=== PATIENT | female | born 1975 | race American Indian/Alaskan Native ===

== ENCOUNTER 2019-08-31 09:38 | Emergency (ER) | payer BC, OTHER ==
[2019-08-31] MEDS ORDERED: ASPIRIN 325 MG TAB PO ONE (09:59)
[2019-08-31 10:30] LABS: Basophils % (Auto) 0.3 % (0.0-1.8); Eosinophils # (Auto) 0.2 K/mm3 (0.0-0.4); Eosinophils % (Auto) 2.1 % (0.0-4.3); Hemoglobin 10.9 gm/dl (10.1-14.3); Lymphocytes # (Auto) 2.3 K/mm3 (1.2-5.4); Lymphocytes % (Auto) 29.1 % (13.4-35.0); Mean Corpuscular HGB Conc 33 % (30-34); Mean Corpuscular Volume 86 fl (79-97); Monocytes # (Auto) 0.4 K/mm3 (0.0-0.8); Monocytes % (Auto) 4.6 % (0.0-7.3); Platelet Count 311 K/mm3 (140-440); Red Blood Count 3.86 M/mm3 (3.65-5.03); Red Cell Distribution Width 14.9 % (13.2-15.2)
--- NOTE | 2019-08-31 10:31 | XRay Report ---
CHEST 2 VIEWS INDICATION: Chest Pain. COMPARISON: 06/10/2010. FINDINGS: Support devices: None. Heart: Within normal limits. Lungs/Pleura: No acute air space or interstitial disease. No significant pleural effusion. IMPRESSION: No acute findings. Signer Name: Osvaldo Fry MD Signed: 08/31/2019 10:26 AM Workstation Name: [id number]
[2019-08-31 10:47] LABS: BUN/Creatinine Ratio 9; Blood Urea Nitrogen 6 mg/dL (7-17); Calcium 8.5 mg/dL (8.4-10.2); Hemolysis Index 4
--- NOTE | 2019-08-31 11:36 | Emergency Department Report ---
ED Chest Pain HPI - General Chief Complaint: Chest Pain Stated Complaint: PAIN IN CHEST Time Seen by Provider: 08/31/19 11:27 Source: patient Mode of arrival: Ambulatory Limitations: No Limitations - History of Present Illness Initial Comments: Patient is a 44-year-old female Emergency room with complaints of chest pain is started 3 days ago. Patient's states the chest pain is a 6 out of 10. Patient states the chest pain is in her left chest. Patient states it radiates to her breast at times. Patient states the chest pain is worse with movement and palpation. Patient states the pain is better with rest. Patient states she's been taking aspirin daily for a week. Patient states she has a history of hypertension. Patient states she started taking Norvasc 2 months ago and it is controlling her blood pressure. Patient denies a history of stroke, CAD and [place]. Patient denies shortness of breath. MD Complaint: chest pain -: Sudden Pain Location: left chest Pain Radiation: other (breast) Severity scale (0 -10): 6 Quality: aching Improves With: rest Worsens With: palpation, movement re: denies: nausea, vomting, diaphoresis, dyspnea, sense of impending doom Other Symptoms: denies: cough, fever, syncope, rash, acid taste in mouth, leg swelling, palpitations, burping Treatments Prior to Arrival: aspirin Aspirin use within the Past 7 Days: (1) Yes - Related Data On Oral Contraceptives: No Home Medications Medication Instructions Recorded Confirmed Last Taken Aspirin/Acetaminophen/Caffeine 1 each PO PRN PRN 06/23/18 06/28/18 06/14/18 [[employer]-Str Powder Packet] Atenolol [Tenormin] 50 mg PO DAILY 06/23/18 06/28/18 06/28/18 09:00 Diclofenac Sodium 75 mg PO BID 06/23/18 06/28/18 06/21/18 Furosemide [Lasix TAB] 20 mg PO DAILY PRN 06/23/18 06/28/18 06/21/18 Phentermine HCl [Adipex-P] 37.5 mg PO QAM 06/23/18 06/23/18 06/22/18 Topiramate [Topamax] 50 mg PO DAILY 06/23/18 06/28/18 06/27/18 16:00 Previous Rx's Medication Instructions Recorded Last Taken Type Naproxen [Naprosyn] 500 mg PO TID PRN #12 tablet 09/17/18 Unknown Rx methOCARBAMOL [Robaxin TAB] 500 mg PO BID #10 tab 09/17/18 Unknown Rx Allergies Allergy/AdvReac Type Severity Reaction Status Date / Time lisinopril Allergy Angioedema Verified 06/23/18 15:02 tramadol AdvReac HEADACHE/ Verified 06/23/18 15:02 VOMITING Heart Score - HEART Score History: Slightly suspicious EKG: Normal Age: < 45 Risk factors: No known risk factors Troponin: < normal limit HEART Score: 0 ED Review of Systems ROS: Stated complaint: PAIN IN CHEST Other details as noted in HPI Constitutional: denies: chills, fever Eyes: denies: eye pain, eye discharge, vision change ENT: denies: ear pain, throat pain Respiratory: denies: cough, shortness of breath, wheezing Cardiovascular: chest pain. denies: palpitations Endocrine: no symptoms reported Gastrointestinal: denies: abdominal pain, nausea, diarrhea Genitourinary: denies: urgency, dysuria, discharge Musculoskeletal: denies: back pain, joint swelling, arthralgia Skin: denies: rash, lesions Neurological: denies: headache, weakness, paresthesias Psychiatric: denies: anxiety, depression Hematological/Lymphatic: denies: easy bleeding, easy bruising ED Past Medical Hx - Past Medical History Previous Medical History?: Yes Hx Hypertension: Yes Hx Arthritis: Yes Hx Headaches / Migraines: Yes (Migraines) - Surgical History Past Surgical History?: Yes Additional Surgical History: RIGHT ROTATOR CUFF REPAIR - Social History Smoking Status: Never Smoker Substance Use Type: None - Medications Home Medications: Home Medications Medication Instructions Recorded Confirmed Last Taken Type Aspirin/Acetaminophen/Caffeine 1 each PO PRN PRN 06/23/18 06/28/18 06/14/18 History [[employer]-Str Powder Packet] Atenolol [Tenormin] 50 mg PO DAILY 06/23/18 06/28/18 06/28/18 09:00 History Diclofenac Sodium 75 mg PO BID 06/23/18 06/28/18 06/21/18 History Furosemide [Lasix TAB] 20 mg PO DAILY PRN 06/23/18 06/28/18 06/21/18 History Phentermine HCl [Adipex-P] 37.5 mg PO QAM 06/23/18 06/23/18 06/22/18 History Topiramate [Topamax] 50 mg PO DAILY 06/23/18 06/28/18 06/27/18 16:00 History Naproxen [Naprosyn] 500 mg PO TID PRN #12 tablet 09/17/18 Unknown Rx methOCARBAMOL [Robaxin TAB] 500 mg PO BID #10 tab 09/17/18 Unknown Rx ED Physical Exam - General Limitations: No Limitations General appearance: alert, in no apparent distress - Head Head exam: Present: atraumatic, normocephalic - Eye Eye exam: Present: normal appearance, PERRL Pupils: Present: normal accommodation - ENT ENT exam: Present: mucous membranes moist - Neck Neck exam: Present: normal inspection - Respiratory Respiratory exam: Present: normal lung sounds bilaterally, chest wall tenderness. Absent: respiratory distress, wheezes, rales - Cardiovascular Cardiovascular Exam: Present: regular rate, normal rhythm. Absent: systolic murmur, diastolic murmur, rubs, gallop - GI/Abdominal GI/Abdominal exam: Present: soft, normal bowel sounds - Extremities Exam Extremities exam: Present: normal inspection - Back Exam Back exam: Present: normal inspection - Neurological Exam Neurological exam: Present: alert, oriented X3 - Psychiatric Psychiatric exam: Present: normal affect, normal mood - Skin Skin exam: Present: warm, dry, intact, normal color. Absent: rash ED Course Vital Signs 08/31/19 08/31/19 08/31/19 09:45 11:44 12:39 Temperature 97.7 F Pulse Rate 84 67 60 Respiratory 18 17 16 Rate Blood Pressure 133/100 146/92 139/90 [Right] O2 Sat by Pulse 97 100 98 Oximetry - Reevaluation(s) Reevaluation #1: discussed all results with patient. Patient's information was faxed over to our local cardiology office for further evaluation of her chest pain. Patient agrees with plan of care and discharge. Patient will be discharged home. Patient stable for discharge. Patient given discharge instructions. Patient voiced understanding of discharge instructions. 08/31/19 12:04 KALINA score - Kalina Score Age > 65: (0) No Aspirin use within the Past 7 Days: (1) Yes 3 or more CAD Risk Factors: (0) No 2 or more Angina events in past 24 hrs: (1) Yes Known CAD with more than 50% Stenosis: (0) No Elevated Cardiac Markers: (0) No ST Deviation Greater than 0.5mm: (0) No KALINA Score: 2 ED Medical Decision Making - Lab Data Result diagrams: 08/31/19 10:02 08/31/19 10:02 - EKG Data -: EKG Interpreted by Me EKG shows normal: sinus rhythm, axis, intervals, QRS complexes, ST-T waves Rate: normal - Radiology Data Radiology results: report reviewed, image reviewed CHEST 2 VIEWS INDICATION: Chest Pain. COMPARISON: 06/10/2010. FINDINGS: Support devices: None. Heart: Within normal limits. Lungs/Pleura: No acute air space or interstitial disease. No significant pleural effusion. IMPRESSION: No acute findings. - Medical Decision Making is a 44-year-old female with a past medical history of hypertension presents to the emergency room with complaints of chest pain 3 days. Patient's chest pain is low risk. Patient's heart score is 0. Patient is stable for discharge. Patient discharged home. Patient will need to follow up with [facility] for further evaluation of her chest pain. Patient's chest pain clinically is musculoskeletal however we will have have the patient see a tax appraiser for further eval. Patient's initial cardiac workup is negative. Patient's EKG and chest x-ray negative. Patient's troponin is negative. Patient stable for discharge. - Differential Diagnosis chest wall pain. Chest pain. Low risk chest pain. Critical care attestation.: If time is entered above; I have spent that time in minutes in the direct care of this critically ill patient, excluding procedure time. ED Disposition Clinical Impression: Chest wall pain, Hypokalemia Chest pain Qualifiers: Chest pain type: unspecified Qualified Code(s): R07.9 - Chest pain, unspecified Disposition: - TO HOME OR SELFCARE Is pt being admited?: No Does the pt Need Aspirin: No Condition: Stable Instructions: Chest Pain (ED), Costochondritis (ED) Additional Instructions: Patient to follow-up with primary care in 2-3 days. Patient to follow-up with tax appraiser within 2 days. Patient to return to ER condition worsens. Patient's information has been faxed over to our local cardiology office, [facility]. Patient to avoid strenuous exercise until cleared by cardiology. Patient to take aspirin daily. Patient to continue all medications. Patient to monitor blood pressure at home. Patient take Tylenol or ibuprofen when necessary for pain. Referrals: PRIMARY CARE, [Primary Care Provider] - 2-3 Days FLAKITA ALLEN MD [Staff Physician] - 2-3 Days Time of Disposition: 12:08
[2019-08-31 12:40] VITALS: BP 139/90
== END 2019-08-31 12:39 | disposition home or self-care (01) ==
LOC: ED 09:38
DX: R07.89 Other chest pain (principal); E87.6 Hypokalemia; I10 Essential (primary) hypertension; M19.90 Unspecified osteoarthritis, unspecified site; G43.909 Migraine, unspecified, not intractable, without status migrainosus
CPT/HCPCS: 36415; 71046; 80048; 84484; 85025; 93005; 93010

== ENCOUNTER 2021-02-05 18:48 | Inpatient (IN) | payer BC, OTHER ==
[2021-02-05] MEDS ORDERED: ACETAMINOPHEN 500 MG TAB PO ONE (20:38)
[2021-02-05] MEDS ORDERED: SODIUM CHLORIDE 0.9% 1000 ML 1,000 ML IV ONE (20:38)
[2021-02-05] MEDS ORDERED: AZITHROMYCIN/NS 500 MG/250 ML 500 MG/250 ML BAG IV ONE (20:39)
[2021-02-05] MEDS ORDERED: cefTRIAXone/NS 1 GM/50 ML 1 GM/50 ML BAG IV ONE (20:39)
[2021-02-05 21:42] LABS: Basophils % (Auto) 0.1 % (0.0-1.8); Hematocrit 40.5 % (30.3-42.9); Hemoglobin 13.3 gm/dl (10.1-14.3); Lymphocytes # (Auto) 1.1 K/mm3 (1.2-5.4); Lymphocytes % (Auto) 15.4 % (13.4-35.0); Mean Corpuscular HGB Conc 33 % (30-34); Mean Corpuscular Volume 81 fl (79-97); Monocytes # (Auto) 0.3 K/mm3 (0.0-0.8); Platelet Count 226 K/mm3 (140-440); Red Blood Count 5.01 M/mm3 (3.65-5.03)
[2021-02-05 21:43] LABS: Alanine Aminotransferase 26 units/L (7-56); Albumin 3.4 g/dL (3.9-5); BUN/Creatinine Ratio 7; Blood Urea Nitrogen 6 mg/dL (7-17); C-Reactive Protein 10.2 mg/dL (0.00-1.30); Calcium 8.1 mg/dL (8.4-10.2); Hemolysis Index 0
--- NOTE | 2021-02-05 22:30 | XRay Report ---
CHEST 2 VIEWS INDICATION / CLINICAL INFORMATION: Chest pain, dyspnea, cough. COMPARISON: None available. FINDINGS: SUPPORT DEVICES: None. HEART / MEDIASTINUM: No significant abnormality. LUNGS / PLEURA: Patchy bilateral pulmonary opacities and interstitial prominence. No pneumothorax. ADDITIONAL FINDINGS: No significant additional findings. IMPRESSION: 1. Patchy bilateral pulmonary opacities and interstitial prominence favor pulmonary edema although an infectious process cannot be completely excluded. Signer Name: Lalito Mariscal MD Signed: 02/05/2021 10:26 PM Workstation Name: [id number]
[2021-02-06] MEDS ORDERED: cefTRIAXone/NS 1 GM/50 ML 1 GM/50 ML BAG IV ONE (02:30)
[2021-02-06] MEDS ORDERED: ACETAMINOPHEN 500 MG TAB PO ONE (02:30)
[2021-02-06] MEDS ORDERED: AZITHROMYCIN/NS 500 MG/250 ML 500 MG/250 ML BAG IV ONE (02:30)
[2021-02-06] MEDS ORDERED: SODIUM CHLORIDE 0.9% 1000 ML 1,000 ML IV ONE (02:40)
[2021-02-06 03:52] LABS: Bilirubin,Urine NEG (Negative); Blood,Urine SM (Negative); Color,Urine Amber (Yellow); Hyaline Casts,Urine 1 /LPF; Mucus,Urine FEW /HPF; Urobilinogen,Urine < 2.0 mg/dL (<2.0)
[2021-02-06 04:05] LABS: Protein,Urine >500 mg/dL (Negative)
[2021-02-06] MEDS ORDERED: dexAMETHasone 4 MG/ML VIAL IV ONE (04:17)
--- NOTE | 2021-02-06 04:18 | Emergency Department Report ---
ED General Adult HPI - General Chief complaint: Dyspnea/Respdistress Stated complaint: SOB/COVID PUI?: Yes Time Seen by Provider: 02/06/21 03:35 Source: patient, EMS ( EMS documentation not available at time of chart dict ation ), RN notes reviewed Mode of arrival: Ambulatory Limitations: No Limitations, Physical Limitation - History of Present Illness Initial comments: The patient was evaluated in the emergency department for symptoms described in the history of present illness. He/she was evaluated in the context of the [facility] COVID-19 pandemic, which necessitated consideration that the patient might be at risk for infection with the virus that causes COVID-19. Institutional protocols and algorithms that pertain to the evaluation of patients at risk for COVID-19 are in a state of rapid change based on information released by regulatory bodies including the CDC and federal and state organizations. These policies and algorithms were followed during the patient's care in the emergency department. Please note that these policies, procedures and recommendations changed on a rapid basis. During the entire history and physical examination, I had on complete personal protective equipment. The patient is a 45-year-old female. She has a history of hypertension, dependent edema, and migraine headaches. She states that she is not , and has not delivered or given within the past 6 weeks. The patient was diagnosed with COVID-19 this past Thursday. She has been having cough, shortness of breath, malaise, fatigue, chest wall tightness, body aches, shortness of breath. Symptoms worsen with physical exertion. They decreased with rest. Positive fever. No urinary symptoms. Patient also feels improved with sitting upright, and with supplemental oxygen. -: Gradual, days(s) Location: back, left, right, upper extremity, lower extremity Severity scale (0 -10): 0 Quality: aching Consistency: constant Improves with: movement, rest - Related Data Home Medications Medication Instructions Recorded Confirmed Last Taken Aspirin/Acetaminophen/Caffeine 1 each PO PRN PRN 06/23/18 06/28/18 06/14/18 [Cesar's Ex-Str Powder Packet] Diclofenac Sodium 75 mg PO BID 06/23/18 06/28/18 06/21/18 Furosemide [Lasix TAB] 20 mg PO DAILY PRN 06/23/18 06/28/18 06/21/18 Phentermine HCl [Adipex-P] 37.5 mg PO QAM 06/23/18 06/23/18 06/22/18 Topiramate [Topamax] 50 mg PO DAILY 06/23/18 06/28/18 06/27/18 16:00 atenoloL [Tenormin] 50 mg PO DAILY 06/23/18 06/28/18 06/28/18 09:00 Previous Rx's Medication Instructions Recorded Last Taken Type Naproxen [Naprosyn] 500 mg PO TID PRN #12 tablet 09/17/18 Unknown Rx methOCARBAMOL [Robaxin TAB] 500 mg PO BID #10 tab 09/17/18 Unknown Rx Allergies Allergy/AdvReac Type Severity Reaction Status Date / Time lisinopril Allergy Angioedema Verified 06/23/18 15:02 tramadol AdvReac HEADACHE/ Verified 06/23/18 15:02 VOMITING ED Review of Systems ROS: Stated complaint: SOB/COVID Other details as noted in HPI Constitutional: fever, malaise, weakness Eyes: denies: eye discharge ENT: congestion Respiratory: cough, shortness of breath, SOB with exertion, SOB at rest Cardiovascular: chest pain (Chest wall pain with cough) Gastrointestinal: denies: vomiting Genitourinary: denies: dysuria Musculoskeletal: back pain, arthralgia, myalgia Neurological: weakness Psychiatric: anxiety ED Past Medical Hx - Past Medical History Previous Medical History?: Yes Hx Hypertension: Yes Hx Arthritis: Yes Hx Headaches / Migraines: Yes (Migraines) - Surgical History Past Surgical History?: Yes Additional Surgical History: RIGHT ROTATOR CUFF REPAIR. D&C x 2 - Social History Smoking Status: Former Smoker Substance Use Type: None - Medications Home Medications: Home Medications Medication Instructions Recorded Confirmed Last Taken Type Aspirin/Acetaminophen/Caffeine 1 each PO PRN PRN 06/23/18 06/28/18 06/14/18 History [Goodgómez's Ex-Str Powder Packet] Diclofenac Sodium 75 mg PO BID 06/23/18 06/28/18 06/21/18 History Furosemide [Lasix TAB] 20 mg PO DAILY PRN 06/23/18 06/28/18 06/21/18 History Phentermine HCl [Adipex-P] 37.5 mg PO QAM 06/23/18 06/23/18 06/22/18 History Topiramate [Topamax] 50 mg PO DAILY 06/23/18 06/28/18 06/27/18 16:00 History atenoloL [Tenormin] 50 mg PO DAILY 06/23/18 06/28/18 06/28/18 09:00 History Naproxen [Naprosyn] 500 mg PO TID PRN #12 tablet 09/17/18 Unknown Rx methOCARBAMOL [Robaxin TAB] 500 mg PO BID #10 tab 09/17/18 Unknown Rx ED Physical Exam - General Limitations: No Limitations, Physical Limitation General appearance: alert, anxious, in distress, obese - Head Head exam: Present: atraumatic, normocephalic - Eye Eye exam: Present: normal appearance, EOMI. Absent: nystagmus - ENT ENT exam: Present: normal exam, normal orophraynx, mucous membranes moist, normal external ear exam - Neck Neck exam: Present: normal inspection, full ROM. Absent: tenderness, meningismus - Respiratory Respiratory exam: Present: respiratory distress, other (Pulmonary auscultation not performed secondary to lack of disposable stethoscope). Absent: stridor - Cardiovascular Cardiovascular Exam: Present: other (Cardiac auscultation not performed secondary to lack of disposable stethoscope) - GI/Abdominal GI/Abdominal exam: Present: soft. Absent: distended, tenderness, guarding, rebound, rigid, pulsatile mass - Extremities Exam Extremities exam: Present: normal inspection, full ROM, other (2+ pulses noted in the bilateral upper and lower extremities. There is no palpable cord. negative Homans sign. Muscular compartments are soft. The pelvis is stable.). Absent: pedal edema, calf tenderness - Back Exam Back exam: Present: normal inspection, full ROM. Absent: tenderness, CVA tenderness (R), CVA tenderness (L), paraspinal tenderness, vertebral tenderness - Neurological Exam Neurological exam: Present: alert, normal gait, other (No facial droop. Tongue midline. Extraocular movements intact bilaterally. Facial sensation intact to light touch in V1, V2, V3 distribution bilaterally. 5 and a 5 strength in 4 extremities. Sensation intact to light touch in 4 extremities.). Absent: motor sensory deficit - Psychiatric Psychiatric exam: Present: anxious - Skin Skin exam: Present: warm, dry, intact, normal color. Absent: rash ED Course Vital Signs 02/05/21 02/05/21 02/06/21 20:30 20:31 02:01 Temperature 100.1 F H 32.1 F L Pulse Rate 125 H 122 H Respiratory 18 43 H Rate Blood Pressure 128/63 120/82 O2 Sat by Pulse 97 96 Oximetry 02/06/21 02/06/21 02/06/21 03:01 04:00 05:00 Temperature Pulse Rate 106 H 111 H 101 H Respiratory 37 H 32 H 30 H Rate Blood Pressure 130/59 125/85 135/88 O2 Sat by Pulse 88 100 Oximetry ED Medical Decision Making - Lab Data Result diagrams: 02/07/21 05:59 02/09/21 08:26 Vital Signs 02/05/21 02/05/21 02/06/21 20:30 20:31 02:01 Temperature 100.1 F H 32.1 F L Pulse Rate 125 H 122 H Respiratory 18 43 H Rate Blood Pressure 128/63 120/82 O2 Sat by Pulse 97 96 Oximetry 02/06/21 02/06/21 02/06/21 03:01 04:00 05:00 Temperature Pulse Rate 106 H 111 H 101 H Respiratory 37 H 32 H 30 H Rate Blood Pressure 130/59 125/85 135/88 O2 Sat by Pulse 88 100 Oximetry Lab Results 02/05/21 02/05/21 02/05/21 Range/Units 20:53 20:53 20:53 WBC 7.2 (4.5-11.0) K/mm3 RBC 5.01 (3.65-5.03) M/mm3 Hgb 13.3 (10.1-14.3) gm/dl Hct 40.5 (30.3-42.9) % MCV 81 (79-97) fl MCH 26 L (28-32) pg MCHC 33 (30-34) % RDW 17.0 H (13.2-15.2) % Plt Count 226 (140-440) K/mm3 Lymph % (Auto) 15.4 (13.4-35.0) % [place] % (Auto) 4.0 (0.0-7.3) % Eos % (Auto) 0.0 (0.0-4.3) % Baso % (Auto) 0.1 (0.0-1.8) % Lymph # (Auto) 1.1 L (1.2-5.4) K/mm3 [place] # (Auto) 0.3 (0.0-0.8) K/mm3 Eos # (Auto) 0.0 (0.0-0.4) K/mm3 Baso # (Auto) 0.0 (0.0-0.1) K/mm3 Seg Neutrophils % 80.5 H (40.0-70.0) % Seg Neutrophils # 5.8 (1.8-7.7) K/mm3 D-Dimer (0-234) ng/mlDDU Sodium 134 L (137-145) mmol/L Potassium 4.4 (3.6-5.0) mmol/L Chloride 99.0 (98-107) mmol/L Carbon Dioxide 26 (22-30) mmol/L Anion Gap 13 mmol/L BUN 6 L (7-17) mg/dL Creatinine 0.9 (0.6-1.2) mg/dL Estimated GFR > 60 ml/min BUN/Creatinine Ratio 7 % Glucose 102 H (65-100) mg/dL Lactic Acid 1.60 (0.7-2.0) mmol/L Calcium 8.1 L (8.4-10.2) mg/dL Ferritin (10.0-200.0) ng/mL Total Bilirubin 0.40 (0.1-1.2) mg/dL AST 44 H (5-40) units/L ALT 26 (7-56) units/L Alkaline Phosphatase 83 (35-129) units/L Lactate Dehydrogenase (91-180) units/L Troponin T < 0.010 (0.00-0.029) ng/mL C-Reactive Protein (0.00-1.30) mg/dL NT-Pro-B Natriuret Pep 29.94 (0-450) pg/mL Total Protein 8.2 (6.3-8.2) g/dL Albumin 3.4 L (3.9-5) g/dL Albumin/Globulin Ratio 0.7 % HCG, Qual (Negative) Urine Color (Yellow) Urine Turbidity (Clear) Urine pH (5.0-7.0) Ur Specific [place] (1.003-1.030) Urine Protein (Negative) mg/dL Urine Glucose (UA) (Negative) mg/dL Urine Ketones (Negative) mg/dL Urine Blood (Negative) Urine Nitrite (Negative) Urine Bilirubin (Negative) Urine Urobilinogen (<2.0) mg/dL Ur Leukocyte Esterase (Negative) Urine WBC (Auto) (0.0-6.0) /HPF Urine RBC (Auto) (0.0-6.0) /HPF U Epithel Cells (Auto) (0-13.0) /HPF Hyaline Casts /LPF Urine Mucus /HPF 02/05/21 02/05/21 02/05/21 Range/Units 20:53 20:53 20:53 WBC (4.5-11.0) K/mm3 RBC (3.65-5.03) M/mm3 Hgb (10.1-14.3) gm/dl Hct (30.3-42.9) % MCV (79-97) fl MCH (28-32) pg MCHC (30-34) % RDW (13.2-15.2) % Plt Count (140-440) K/mm3 Lymph % (Auto) (13.4-35.0) % [place] % (Auto) (0.0-7.3) % Eos % (Auto) (0.0-4.3) % Baso % (Auto) (0.0-1.8) % Lymph # (Auto) (1.2-5.4) K/mm3 [place] # (Auto) (0.0-0.8) K/mm3 Eos # (Auto) (0.0-0.4) K/mm3 Baso # (Auto) (0.0-0.1) K/mm3 Seg Neutrophils % (40.0-70.0) % Seg Neutrophils # (1.8-7.7) K/mm3 D-Dimer 983.48 H (0-234) ng/mlDDU Sodium (137-145) mmol/L Potassium (3.6-5.0) mmol/L Chloride (98-107) mmol/L Carbon Dioxide (22-30) mmol/L Anion Gap mmol/L BUN (7-17) mg/dL Creatinine (0.6-1.2) mg/dL Estimated GFR ml/min BUN/Creatinine Ratio % Glucose 100 (65-100) mg/dL Lactic Acid (0.7-2.0) mmol/L Calcium (8.4-10.2) mg/dL Ferritin (10.0-200.0) ng/mL Total Bilirubin (0.1-1.2) mg/dL AST (5-40) units/L ALT (7-56) units/L Alkaline Phosphatase (35-129) units/L Lactate Dehydrogenase 426 H (91-180) units/L Troponin T (0.00-0.029) ng/mL C-Reactive Protein 10.20 H (0.00-1.30) mg/dL NT-Pro-B Natriuret Pep (0-450) pg/mL Total Protein (6.3-8.2) g/dL Albumin (3.9-5) g/dL Albumin/Globulin Ratio % HCG, Qual Negative (Negative) Urine Color (Yellow) Urine Turbidity (Clear) Urine pH (5.0-7.0) Ur Specific [place] (1.003-1.030) Urine Protein (Negative) mg/dL Urine Glucose (UA) (Negative) mg/dL Urine Ketones (Negative) mg/dL Urine Blood (Negative) Urine Nitrite (Negative) Urine Bilirubin (Negative) Urine Urobilinogen (<2.0) mg/dL Ur Leukocyte Esterase (Negative) Urine WBC (Auto) (0.0-6.0) /HPF Urine RBC (Auto) (0.0-6.0) /HPF U Epithel Cells (Auto) (0-13.0) /HPF Hyaline Casts /LPF Urine Mucus /HPF 02/05/21 02/06/21 Range/Units 20:53 03:26 WBC (4.5-11.0) K/mm3 RBC (3.65-5.03) M/mm3 Hgb (10.1-14.3) gm/dl Hct (30.3-42.9) % MCV (79-97) fl MCH (28-32) pg MCHC (30-34) % RDW (13.2-15.2) % Plt Count (140-440) K/mm3 Lymph % (Auto) (13.4-35.0) % [place] % (Auto) (0.0-7.3) % Eos % (Auto) (0.0-4.3) % Baso % (Auto) (0.0-1.8) % Lymph # (Auto) (1.2-5.4) K/mm3 [place] # (Auto) (0.0-0.8) K/mm3 Eos # (Auto) (0.0-0.4) K/mm3 Baso # (Auto) (0.0-0.1) K/mm3 Seg Neutrophils % (40.0-70.0) % Seg Neutrophils # (1.8-7.7) K/mm3 D-Dimer (0-234) ng/mlDDU Sodium (137-145) mmol/L Potassium (3.6-5.0) mmol/L Chloride (98-107) mmol/L Carbon Dioxide (22-30) mmol/L Anion Gap mmol/L BUN (7-17) mg/dL Creatinine (0.6-1.2) mg/dL Estimated GFR ml/min BUN/Creatinine Ratio % Glucose (65-100) mg/dL Lactic Acid (0.7-2.0) mmol/L Calcium (8.4-10.2) mg/dL Ferritin 281.7 H (10.0-200.0) ng/mL Total Bilirubin (0.1-1.2) mg/dL AST (5-40) units/L ALT (7-56) units/L Alkaline Phosphatase (35-129) units/L Lactate Dehydrogenase (91-180) units/L Troponin T (0.00-0.029) ng/mL C-Reactive Protein (0.00-1.30) mg/dL NT-Pro-B Natriuret Pep (0-450) pg/mL Total Protein (6.3-8.2) g/dL Albumin (3.9-5) g/dL Albumin/Globulin Ratio % HCG, Qual (Negative) Urine Color [place] (Yellow) Urine Turbidity Slightly-cloudy (Clear) Urine pH 6.0 (5.0-7.0) Ur Specific [place] 1.029 (1.003-1.030) Urine Protein >500 (Negative) mg/dL Urine Glucose (UA) Neg (Negative) mg/dL Urine Ketones Neg (Negative) mg/dL Urine Blood Sm (Negative) Urine Nitrite Neg (Negative) Urine Bilirubin Neg (Negative) Urine Urobilinogen < 2.0 (<2.0) mg/dL Ur Leukocyte Esterase Neg (Negative) Urine WBC (Auto) 5.0 (0.0-6.0) /HPF Urine RBC (Auto) 3.0 (0.0-6.0) /HPF U Epithel Cells (Auto) 8.0 (0-13.0) /HPF Hyaline Casts 1 /LPF Urine Mucus Few /HPF - EKG Data -: EKG Interpreted by Me EKG shows normal: sinus rhythm Rate: normal - EKG Data 02/06/21 05:19 Sinus rhythm, tachycardia, 120 bpm. Left axis deviation, poor R wave progression, QTC 433 ms. This is an abnormal EKG. This is not a STEMI. It appears to be unchanged when compared to prior EKG from August 2019. - Radiology Data Radiology results: pending, report reviewed, image reviewed Patient: DARWIN REED MR# : [id number] : 1975 Acct:[id number] Age/Sex: 45 / F ADM Date: 02/05/21 Loc: ED Attending Dr: Ordering Physician: CORINE AREVALO Date of Service: 02/05/21 Procedure(s): XR chest routine 2V Accession Number(s): [id number] cc: CORINE AREVALO Fluoro Time In Minutes: CHEST 2 VIEWS INDICATION / CLINICAL INFORMATION: Chest pain, dyspnea, cough. COMPARISON: None available. FINDINGS: SUPPORT DEVICES: None. HEART / MEDIASTINUM: No significant abnormality. LUNGS / PLEURA: Patchy bilateral pulmonary opacities and interstitial prominence. No pneumothorax. ADDITIONAL FINDINGS: No significant additional findings. IMPRESSION: 1. Patchy bilateral pulmonary opacities and interstitial prominence favor pulmonary edema although an infectious process cannot be completely excluded. Signer Name: Mat Mariscal MD Signed: 02/05/2021 10:26 PM Workstation Name: [id number] Transcribed By: SS Dictated By: MAT MARISCAL Electronically Authenticated By: MAT MARISCAL Signed Date/Time: 02/05/21 2226 Critical Care Time: Yes Critical care time in (mins) excluding proc time.: 35 Critical care attestation.: If time is entered above; I have spent that time in minutes in the direct care of this critically ill patient, excluding procedure time. ED Disposition Clinical Impression: Acute hypoxemic respiratory failure, Suspected COVID-19 virus infection Disposition: OP ADMIT IP TO THIS HOSP Is pt being admited?: Yes Does the pt Need Aspirin: No Condition: Good
[2021-02-06] MEDS ORDERED: FUROSEMIDE 20 MG TAB PO PRN (04:53)
[2021-02-06] MEDS ORDERED: NAPROXEN 500 MG TAB PO PRN (04:53)
[2021-02-06] MEDS ORDERED: ALBUTEROL 2.5 MG/3 ML NEBU IH PRN (04:56)
[2021-02-06] MEDS ORDERED: hydrALAZINE 20 MG/1 ML INJ IV PRN (04:56)
--- NOTE | 2021-02-06 05:02 | History and Physical Report ---
History of Present Illness Date of examination: 02/06/21 Date of admission: 02/06/21 04:18 Chief complaint: Shortness of breath Respiratory distress COVID-19 History of present illness: 45 years old female with history of hypertension, arthritis and migraine was brought to the hospital because of progressive shortness of breath for last 1 to 2 days. Patient breathing labored. Patient's HR 114, temp 99.7F. Patient was tested + covid last thursday. Patient o2 started @6L/min via NC, RR 26-27bpm. In the ER patient chest x-ray shows patchy bilateral pulmonary opacities and interstitial prominence favor pulmonary edema although an infectious process cannot be completely excluded Past History Past Medical History: arthritis (Migraine), hypertension, other Medications and Allergies Allergies Allergy/AdvReac Type Severity Reaction Status Date / Time lisinopril Allergy Angioedema Verified 06/23/18 15:02 tramadol AdvReac HEADACHE/ Verified 06/23/18 15:02 VOMITING Home Medications Medication Instructions Recorded Confirmed Last Taken Type Aspirin/Acetaminophen/Caffeine 1 each PO PRN PRN 06/23/18 06/28/18 06/14/18 History [[employer]esar[employer] Ex-Str Powder Packet] Diclofenac Sodium 75 mg PO BID 06/23/18 06/28/18 06/21/18 History Furosemide [Lasix TAB] 20 mg PO DAILY PRN 06/23/18 06/28/18 06/21/18 History Phentermine HCl [Adipex-P] 37.5 mg PO QAM 06/23/18 06/23/18 06/22/18 History Topiramate [Topamax] 50 mg PO DAILY 06/23/18 06/28/18 06/27/18 16:00 History atenoloL [Tenormin] 50 mg PO DAILY 06/23/18 06/28/18 06/28/18 09:00 History Naproxen [Naprosyn] 500 mg PO TID PRN #12 tablet 09/17/18 Unknown Rx methOCARBAMOL [Robaxin TAB] 500 mg PO BID #10 tab 09/17/18 Unknown Rx Active Meds: Active Medications Albuterol (Albuterol 2.5 Mg/3 Ml Nebu) 2.5 mg IH Q4HRT PRN PRN Reason: Shortness Of Breath Atenolol (Atenolol 50 Mg Tab) 50 mg PO DAILY [facility] Dexamethasone (Dexamethasone 4 Mg/Ml Vial) 6 mg IV DAILY ONE Stop: 02/06/21 04:57 Diclofenac Sodium (Diclofenac Dr 75 Mg Tab) 75 mg PO BID [facility] Famotidine (Famotidine 20 Mg Tab) 20 mg PO BID [facility] Furosemide (Furosemide 20 Mg Tab) 20 mg PO DAILY PRN PRN Reason: SWELLING LEGS Heparin Sodium (Porcine) (Heparin 5,000 Unit/1 Ml Vial) 5,000 unit SUB-Q Q8HR [facility] Hydralazine HCl (Hydralazine 20 Mg/1 Ml Inj) 10 mg IV Q6H PRN PRN Reason: htn Ceftriaxone Sodium (Rocephin/Ns 2 Gm/100 Ml) 2 gm in 100 mls @ 200 mls/hr IV Q24H [facility]; Protocol Azithromycin (Zithromax/Ns) 500 mg in 250 mls @ 250 mls/hr IV Q24H [facility]IA; Protocol Methocarbamol (Methocarbamol 500 Mg Tab) 500 mg PO BID [facility] Miscellaneous Medication (Topiramate [Topamax]) 50 mg PO DAILY [facility] Naproxen (Naproxen 500 Mg Tab) 500 mg PO TID PRN PRN Reason: Pain , Severe (7-10) Review of Systems Cardiovascular: shortness of breath Respiratory: cough, shortness of breath Exam - Constitutional Vitals: Temp Pulse Resp BP Pulse Ox 32.1 F L 111 H 32 H 125/85 88 02/05/21 20:31 02/06/21 04:00 02/06/21 04:00 02/06/21 04:00 02/06/21 03:01 General appearance: Present: no acute distress, well-nourished - EENT Eyes: Present: PERRL ENT: hearing intact, clear oral mucosa - Neck Neck: Present: supple, normal ROM - Respiratory Respiratory effort: normal, labored Respiratory: bilateral: diminished - Cardiovascular Heart Sounds: Present: S1 & S2. Absent: rub, click - Extremities Extremities: pulses symmetrical, No edema Peripheral Pulses: within normal limits - Abdominal General gastrointestinal: Present: soft, non-tender, non-distended, normal bowel sounds Female genitourinary: Present: normal - Integumentary Integumentary: Present: clear, warm, dry - Musculoskeletal Musculoskeletal: gait normal, strength equal bilaterally - Psychiatric Psychiatric: appropriate mood/affect, intact judgment & insight - Neurologic Neurologic: CNII-XII intact, moves all extremities HEART Score - HEART Score Troponin: Troponin T < 0.010 ng/mL (0.00-0.029) 02/05/21 20:53 Results - Labs CBC & Chem 7: 02/05/21 20:53 02/05/21 20:53 Labs: Laboratory Last Values WBC 7.2 K/mm3 (4.5-11.0) 02/05/21 20:53 RBC 5.01 M/mm3 (3.65-5.03) 02/05/21 20:53 Hgb 13.3 gm/dl (10.1-14.3) 02/05/21 20:53 Hct 40.5 % (30.3-42.9) 02/05/21 20:53 MCV 81 fl (79-97) 02/05/21 20:53 MCH 26 pg (28-32) L 02/05/21 20:53 MCHC 33 % (30-34) 02/05/21 20:53 RDW 17.0 % (13.2-15.2) H 02/05/21 20:53 Plt Count 226 K/mm3 (140-440) 02/05/21 20:53 Lymph % (Auto) 15.4 % (13.4-35.0) 02/05/21 20:53 [place] % (Auto) 4.0 % (0.0-7.3) 02/05/21 20:53 Eos % (Auto) 0.0 % (0.0-4.3) 02/05/21 20:53 Baso % (Auto) 0.1 % (0.0-1.8) 02/05/21 20:53 Lymph # (Auto) 1.1 K/mm3 (1.2-5.4) L 02/05/21 20:53 [place] # (Auto) 0.3 K/mm3 (0.0-0.8) 02/05/21 20:53 Eos # (Auto) 0.0 K/mm3 (0.0-0.4) 02/05/21 20:53 Baso # (Auto) 0.0 K/mm3 (0.0-0.1) 02/05/21 20:53 Seg Neutrophils % 80.5 % (40.0-70.0) H 02/05/21 20:53 Seg Neutrophils # 5.8 K/mm3 (1.8-7.7) 02/05/21 20:53 D-Dimer 983.48 ng/mlDDU (0-234) H 02/05/21 20:53 Sodium 134 mmol/L (137-145) L 02/05/21 20:53 Potassium 4.4 mmol/L (3.6-5.0) 02/05/21 20:53 Chloride 99.0 mmol/L (98-107) 02/05/21 20:53 Carbon Dioxide 26 mmol/L (22-30) 02/05/21 20:53 Anion Gap 13 mmol/L 02/05/21 20:53 BUN 6 mg/dL (7-17) L 02/05/21 20:53 Creatinine 0.9 mg/dL (0.6-1.2) 02/05/21 20:53 Estimated GFR > 60 ml/min 02/05/21 20:53 BUN/Creatinine Ratio 7 % 02/05/21 20:53 Glucose 100 mg/dL (65-100) 02/05/21 20:53 Glucose 102 mg/dL (65-100) H 02/05/21 20:53 Lactic Acid 1.60 mmol/L (0.7-2.0) 02/05/21 20:53 Calcium 8.1 mg/dL (8.4-10.2) L 02/05/21 20:53 Ferritin 281.7 ng/mL (10.0-200.0) H 02/05/21 20:53 Total Bilirubin 0.40 mg/dL (0.1-1.2) 02/05/21 20:53 AST 44 units/L (5-40) H 02/05/21 20:53 ALT 26 units/L (7-56) 02/05/21 20:53 Alkaline Phosphatase 83 units/L (35-129) 02/05/21 20:53 Lactate Dehydrogenase 426 units/L (91-180) H 02/05/21 20:53 Troponin T < 0.010 ng/mL (0.00-0.029) 02/05/21 20:53 C-Reactive Protein 10.20 mg/dL (0.00-1.30) H 02/05/21 20:53 NT-Pro-B Natriuret Pep 29.94 pg/mL (0-450) 02/05/21 20:53 Total Protein 8.2 g/dL (6.3-8.2) 02/05/21 20:53 Albumin 3.4 g/dL (3.9-5) L 02/05/21 20:53 Albumin/Globulin Ratio 0.7 % 02/05/21 20:53 HCG, Qual Negative (Negative) 02/05/21 20:53 Urine Color [place] (Yellow) 02/06/21 03:26 Urine Turbidity Slightly-cloudy (Clear) 02/06/21 03:26 Urine pH 6.0 (5.0-7.0) 02/06/21 03:26 Ur Specific [place] 1.029 (1.003-1.030) 02/06/21 03:26 Urine Protein >500 mg/dL (Negative) 02/06/21 03:26 Urine Glucose (UA) Neg mg/dL (Negative) 02/06/21 03:26 Urine Ketones Neg mg/dL (Negative) 02/06/21 03:26 Urine Blood Sm (Negative) 02/06/21 03:26 Urine Nitrite Neg (Negative) 02/06/21 03:26 Urine Bilirubin Neg (Negative) 02/06/21 03:26 Urine Urobilinogen < 2.0 mg/dL (<2.0) 02/06/21 03:26 Ur Leukocyte Esterase Neg (Negative) 02/06/21 03:26 Urine WBC (Auto) 5.0 /HPF (0.0-6.0) 02/06/21 03:26 Urine RBC (Auto) 3.0 /HPF (0.0-6.0) 02/06/21 03:26 U Epithel Cells (Auto) 8.0 /HPF (0-13.0) 02/06/21 03:26 Hyaline Casts 1 /LPF 02/06/21 03:26 Urine Mucus Few /HPF 02/06/21 03:26 Microbiology: Microbiology 02/05/21 20:47 Peripheral/Venous Blood Culture - Preliminary Culture in Progress 02/05/21 20:53 Peripheral/Venous Blood Culture - Preliminary Culture in Progress - Imaging and Cardiology Chest x-ray: image reviewed Assessment and Plan VTE prophylaxis?: Chemical Plan of care discussed with patient/family: Yes - Patient Problems (1) Suspected COVID-19 virus infection Current Visit: Yes Status: Acute Plan to address problem: Admit the patient to the medical floor telemetry. Oxygen via nasal cannula 6 L/min. DuoNeb by nebulizer every 4 hours as needed. Rocephin 2 g IV daily. And Zithromax 500 mg IV daily. Decadron 6 mg IV daily. We will do the blood culture and sputum culture. We also consult infectious disease for evaluation. Recheck CBC BMP in the morning (2) Acute hypoxemic respiratory failure Current Visit: Yes Status: Acute Plan to address problem: Oxygen via nasal cannula 6 L/min. DuoNeb by nebulizer every 4 hours as needed. Rocephin 2 g IV daily. And Zithromax 500 mg IV daily. Decadron 6 mg IV daily. We will do the blood culture and sputum culture. We also consult infectious disease for evaluation. Recheck CBC BMP in the morning. Consult pulmonary if needed (3) Hypertension Current Visit: Yes Status: Acute Plan to address problem: Hydralazine 10 mg IV every 6 hours as needed. We will monitor the blood pressure closely (4) Arthritis Current Visit: Yes Status: Acute Plan to address problem: We will continue the home medication. Patient will follow up with primary care physician as outpatient. (5) DVT prophylaxis Current Visit: Yes Status: Acute Plan to address problem: Heparin 5000 units subcu every 8 hours for DVT prophylaxis. Pepcid 20 mg p.o. twice daily for GI prophylaxis. Patient is a full code
[2021-02-06] MEDS: HEPARIN 5,000 UNIT/1 ML VIAL SUB-Q SCH ×3 (06:55→23:37)
[2021-02-06] MEDS ORDERED: AZITHROMYCIN/NS 500 MG/250 ML 500 MG/250 ML BAG IV SCH (10:00)
[2021-02-06] MEDS ORDERED: cefTRIAXone/NS 2 GM/100 ML 2 GM/100 ML BAG IV SCH (10:00)
[2021-02-06] MEDS: FAMOTIDINE 20 MG TAB PO SCH ×2 (10:14→23:37)
[2021-02-06] MEDS: atenoloL 50 MG TAB PO SCH (10:14)
[2021-02-06] MEDS: TOPIRAMATE TAB 25 MG TAB PO SCH ×2 (10:14→10:31)
[2021-02-06] MEDS: dexAMETHasone 4 MG/ML VIAL IV SCH (10:15)
--- NOTE | 2021-02-06 11:02 | Event Note ---
Date: 02/06/21 Patient was seen and evaluated this morning. Patient was admitted earlier this morning. Patient was admitted for acute hypoxic respiratory failure due to COVID-19 infection. Patient was on 6 L of oxygen. Patient is on Decadron and remdesivir. Patient was positive for Covid on 02/01/2021. We going to get another test today. Vital signs and work-ups are noted. CTA chest and bilateral Doppler ultrasound of the lower extremities ordered.
[2021-02-06] MEDS: DICLOFENAC DR 75 MG TAB PO SCH ×2 (11:25→23:37)
[2021-02-06] MEDS ORDERED: REMDESIVIR 100 MG VIAL IV ONE (13:00)
[2021-02-06] MEDS ORDERED: REMDESIVIR 200 MG in SODIUM CHLORIDE 0.9% 250ML 250 ML IV ONE (13:00)
--- NOTE | 2021-02-06 13:40 | Consultation ---
History of Present Illness - Reason for Consult Consult date: 02/06/21 - History of Present Illness 45-year-old female past medical history hypertension, arthritis, migraine presented to the hospital setting of shortness of breath. This began 2 days prior to admission and has been progressively worse since onset. She tested positive for COVID-19 Patient 5 days prior to admission. Afebrile since admission with a white count of 7.2. Normal renal function, normal procalcitonin. Cultures negative so far. Currently on ceftriaxone and azithromycin. Hypoxic on admission. Imaging personally reviewed: Chest x-ray: Patchy bilateral pulmonary opacities Review of systems: Deferred to reduce to the risk of transmission of COVID-19 Past History Past Medical History: arthritis (Migraine), hypertension, other Medications and Allergies Allergies Allergy/AdvReac Type Severity Reaction Status Date / Time lisinopril Allergy Angioedema Verified 06/23/18 15:02 tramadol AdvReac HEADACHE/ Verified 06/23/18 15:02 VOMITING Home Medications Medication Instructions Recorded Confirmed Last Taken Type Aspirin/Acetaminophen/Caffeine 1 each PO PRN PRN 06/23/18 06/28/18 06/14/18 History [[employer] Ex-Str Powder Packet] Diclofenac Sodium 75 mg PO BID 06/23/18 06/28/18 06/21/18 History Furosemide [Lasix TAB] 20 mg PO DAILY PRN 06/23/18 06/28/18 06/21/18 History Phentermine HCl [Adipex-P] 37.5 mg PO QAM 06/23/18 06/23/18 06/22/18 History Topiramate [Topamax] 50 mg PO DAILY 06/23/18 06/28/18 06/27/18 16:00 History atenoloL [Tenormin] 50 mg PO DAILY 06/23/18 06/28/18 06/28/18 09:00 History Naproxen [Naprosyn] 500 mg PO TID PRN #12 tablet 09/17/18 Unknown Rx methOCARBAMOL [Robaxin TAB] 500 mg PO BID #10 tab 09/17/18 Unknown Rx Active Meds: Active Medications Albuterol (Albuterol 2.5 Mg/3 Ml Nebu) 2.5 mg IH Q4HRT PRN PRN Reason: Shortness Of Breath Atenolol (Atenolol 50 Mg Tab) 50 mg PO DAILY [facility] Last Admin: 02/06/21 10:14 Dose: 50 mg Documented by: Dexamethasone (Dexamethasone 4 Mg/Ml Vial) 6 mg IV DAILY [facility] Stop: 02/15/21 10:01 Last Admin: 02/06/21 10:15 Dose: 6 mg Documented by: Diclofenac Sodium (Diclofenac Dr 75 Mg Tab) 75 mg PO BID [facility] Last Admin: 02/06/21 11:25 Dose: 75 mg Documented by: Famotidine (Famotidine 20 Mg Tab) 20 mg PO BID [facility] Last Admin: 02/06/21 10:14 Dose: 20 mg Documented by: Furosemide (Furosemide 20 Mg Tab) 20 mg PO DAILY PRN PRN Reason: SWELLING LEGS Heparin Sodium (Porcine) (Heparin 5,000 Unit/1 Ml Vial) 5,000 unit SUB-Q Q8HR [facility] Last Admin: 02/06/21 06:55 Dose: 5,000 unit Documented by: Hydralazine HCl (Hydralazine 20 Mg/1 Ml Inj) 10 mg IV Q6H PRN PRN Reason: htn Ceftriaxone Sodium (Rocephin/Ns 2 Gm/100 Ml) 2 gm in 100 mls @ 200 mls/hr IV Q24HR [facility]; Protocol Last Admin: 02/06/21 10:14 Dose: 200 mls/hr Documented by: Azithromycin (Zithromax/Ns) 500 mg in 250 mls @ 250 mls/hr IV Q24HR [facility]; Protocol Last Admin: 02/06/21 10:14 Dose: 250 mls/hr Documented by: REMDESIVIR 100 mg/ Sodium (Chloride) 250 mls @ 500 mls/hr IV Q24HR@2100 [facility] Stop: 02/10/21 21:29 Methocarbamol (Methocarbamol 500 Mg Tab) 500 mg PO BID [facility] Last Admin: 02/06/21 10:14 Dose: 500 mg Documented by: Sodium Chloride (Sodium Chloride 0.9% 50 Ml Ivpb) 50 ml IV Q24HR@2100 [facility] Stop: 02/10/21 21:01 Topiramate (Topiramate Tab 25 Mg Tab) 50 mg PO DAILY [facility] Last Admin: 02/06/21 10:31 Dose: Not Given Documented by: Physical Examination - Physical Exam Narrative exam: Physical exam deferred to reduce risk of transmission of COVID-19. Please refer to primary team's note. - Constitutional Vitals: Vital Signs Temp Pulse Resp BP Pulse Ox 97.9 F 81 16 113/80 100 02/06/21 11:35 02/06/21 11:35 02/06/21 11:35 02/06/21 12:29 02/06/21 11:41 Temperature -Last 24 Hours Temperature 97.9 F Temperature 98.7 F Temperature 32.1 F Temperature 100.1 F Results - Labs CBC & Chem 7: 02/05/21 20:53 02/05/21 20:53 Labs: Abnormal lab results 02/05/21 02/05/21 02/05/21 Range/Units 20:53 20:53 20:53 MCH 26 L (28-32) pg RDW 17.0 H (13.2-15.2) % Lymph # (Auto) 1.1 L (1.2-5.4) K/mm3 Seg Neutrophils % 80.5 H (40.0-70.0) % D-Dimer 983.48 H (0-234) ng/mlDDU Sodium 134 L (137-145) mmol/L BUN 6 L (7-17) mg/dL Glucose 102 H (65-100) mg/dL Calcium 8.1 L (8.4-10.2) mg/dL Ferritin (10.0-200.0) ng/mL AST 44 H (5-40) units/L Lactate Dehydrogenase (91-180) units/L C-Reactive Protein (0.00-1.30) mg/dL Albumin 3.4 L (3.9-5) g/dL 02/05/21 02/05/21 Range/Units 20:53 20:53 MCH (28-32) pg RDW (13.2-15.2) % Lymph # (Auto) (1.2-5.4) K/mm3 Seg Neutrophils % (40.0-70.0) % D-Dimer (0-234) ng/mlDDU Sodium (137-145) mmol/L BUN (7-17) mg/dL Glucose (65-100) mg/dL Calcium (8.4-10.2) mg/dL Ferritin 281.7 H (10.0-200.0) ng/mL AST (5-40) units/L Lactate Dehydrogenase 426 H (91-180) units/L C-Reactive Protein 10.20 H (0.00-1.30) mg/dL Albumin (3.9-5) g/dL Assessment and Plan Cultures: Blood culture no growth so far. A/P: 45 yo F PMHx morbid obesity, HTN, migraines presents with COVID pneumonia. #COVID-19 pneumonia: Patient presented with a week of symptoms, chest x-ray with diffuse bilateral infiltrates. Inflammatory markers elevated #Acute hypoxemic respiratory failure: Likely secondary to COVID-19 infection. Currently on nasal cannula #Morbid obesity: associated with worse COVID outcomes. Recs: -Dexamethasone 6 mg IV/PO daily for 10 days -Remdesivir 200 mg IV q day x 1 followed by 100 mg IV q day x 4 days as patient is hypoxic. -Obtain q48-72h inflammatory markers - ferritin, Ddimer, CRP, LDH -Stopped antibiotics due to normal procalcitonin. -Anticoagulation per hospital protocol -Proning as able -Follow up CTA Thank you for the consult, we will continue to follow. MD Tyrese Bhatia [facility] O: [phone] F: [phone]
[2021-02-06] MEDS: SODIUM CHLORIDE 0.9% 50 ML IVPB IV SCH (14:05)
--- NOTE | 2021-02-06 14:11 | Cat Scan Report ---
CTA CHEST WITH CONTRAST INDICATION / CLINICAL INFORMATION: Dyspnea TECHNIQUE: Axial CT images were obtained through the chest after injection of IV contrast. 3 plane CO P and/or 3D reconstructions were produced. All CT scans at this location are performed using CT dose reduction for ALARA by means of automated exposure control. COMPARISON: None available. FINDINGS: PULMONARY ARTERIES: No central or segmental pulmonary embolus. THORACIC AORTA: No significant abnormality. HEART: No significant abnormality. ADENOPATHY: No significant adenopathy. LUNGS/PLEURA: Multifocal peripherally predominant airspace disease throughout the lungs. No pleural e ffusion. No pneumothorax. ADDITIONAL FINDINGS: 2.7 cm nodule arises from the inferior pole of the right thyroid lobe. UPPER ABDOMEN: No acute findings. SKELETAL STRUCTURES: No significant osseous abnormality. IMPRESSION: 1. No evidence of pulmonary embolus. 2. Multifocal peripherally predominant airspace disease throughout the lungs, most consistent with at ypical infectious or inflammatory process. These findings may be seen with COVID. 3. 2.7 cm right thyroid nodule, for which dedicated thyroid ultrasound is recommended. Signer Name: Zia Kessler MD Signed: 02/06/2021 9:11 AM Workstation Name: [id number]
--- NOTE | 2021-02-06 14:12 | Vascular Lab Report ---
Bilateral lower extremity Doppler venous ultrasound INDICATION: Shortness of breath FINDINGS: Bilateral common femoral veins, superficial femoral veins and popliteal veins have normal c ompressibility and phasic flow. IMPRESSION: No evidence for DVT in bilateral lower extremities. Signer Name: Neo Kaminski MD Signed: 02/06/2021 1:27 PM Workstation Name: [id number]
[2021-02-06] MEDS: oxyCODONE /ACETAMINOPHEN 5-325MG TAB PO PRN (19:20)
[2021-02-07] MEDS: oxyCODONE /ACETAMINOPHEN 5-325MG TAB PO PRN ×3 (03:49→18:03)
[2021-02-07] MEDS: HEPARIN 5,000 UNIT/1 ML VIAL SUB-Q SCH ×3 (06:27→23:12)
[2021-02-07 07:04] LABS: Basophils % (Auto) 0.1 % (0.0-1.8); Hematocrit 35.2 % (30.3-42.9); Hemoglobin 11.4 gm/dl (10.1-14.3); Lymphocytes # (Auto) 1.3 K/mm3 (1.2-5.4); Lymphocytes % (Auto) 22.8 % (13.4-35.0); Mean Corpuscular HGB Conc 32 % (30-34); Mean Corpuscular Volume 81 fl (79-97); Monocytes # (Auto) 0.4 K/mm3 (0.0-0.8); Monocytes % (Auto) 7.2 % (0.0-7.3); Platelet Count 228 K/mm3 (140-440); Red Blood Count 4.32 M/mm3 (3.65-5.03); Red Cell Distribution Width 16.8 % (13.2-15.2)
[2021-02-07 07:29] LABS: Alanine Aminotransferase 25 units/L (7-56); Albumin 3.1 g/dL (3.9-5); Blood Urea Nitrogen 9 mg/dL (7-17); Hemolysis Index 3
[2021-02-07 07:46] LABS: BUN/Creatinine Ratio 13
--- NOTE | 2021-02-07 07:58 | Progress Note ---
Assessment and Plan Assessment and plan: (1) COVID-19 pneumonia Current Visit: Yes Status: Acute Plan to address problem: Admit the patient to the medical floor telemetry. Oxygen via nasal cannula 6 L/min. DuoNeb by nebulizer every 4 hours as needed. Rocephin 2 g IV daily. And Zithromax 500 mg IV daily. Decadron 6 mg IV daily. We will do the blood culture and sputum culture. We also consult infectious disease for evaluation. Recheck CBC BMP in the morning (2) Acute hypoxemic respiratory failure Current Visit: Yes Status: Acute Plan to address problem: Oxygen via nasal cannula 6 L/min. DuoNeb by nebulizer every 4 hours as needed. Rocephin 2 g IV daily. And Zithromax 500 mg IV daily. Decadron 6 mg IV daily. We will do the blood culture and sputum culture. We also consult infectious disease for evaluation. Recheck CBC BMP in the morning. Consult pulmonary if needed (3) Hypertension Current Visit: Yes Status: Acute Plan to address problem: Hydralazine 10 mg IV every 6 hours as needed. We will monitor the blood pressure closely (4) Arthritis Current Visit: Yes Status: Acute Plan to address problem: We will continue the home medication. Patient will follow up with primary care physician as outpatient. (5) DVT prophylaxis Current Visit: Yes Status: Acute Plan to address problem: Heparin 5000 units subcu every 8 hours for DVT prophylaxis. Pepcid 20 mg p.o. twice daily for GI prophylaxis. Patient is a full code 02/07/2021 -Patient admitted for acute hypoxic respiratory failure due to COVID-19 pneumonia, patient is on oxygen support. Patient is on 6 L of oxygen and will titrate down as tolerated -Patient started on IV remdesivir and Decadron. -PT OT evaluation -Patient is on furosemide -ID consulted and recommend to continue current medication regimen History Interval history: Patient was seen and evaluated this morning Patient states she became out of breath with minimal ambulation even going to the bathroom Patient was on 6 L of oxygen Hospitalist Physical - Physical exam Narrative exam: Patient was on 6 L of oxygen. The patient is morbidly obese Vital signs as documented. Head exam is unremarkable. No scleral icterus . Neck is without jugular venous distension, thyromegaly, or carotid bruits. Lungs are clear to auscultation. Cardiac exam reveals regular rate and Rhythm. Abdominal exam reveals normal bowel sounds, nontender, no organomegaly. Extremities are nonedematous and both femoral and pedal pulses are normal. 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 No focal weakness. - Constitutional Vitals: Temp Pulse Resp BP Pulse Ox 97.6 F 88 20 141/100 99 02/07/21 04:43 02/07/21 04:43 02/07/21 04:43 02/07/21 04:43 02/07/21 04:43 General appearance: Present: no acute distress, well-nourished HEART Score - HEART Score Troponin: Troponin T < 0.010 ng/mL (0.00-0.029) 02/05/21 20:53 Results - Labs CBC & Chem 7: 02/07/21 05:59 02/07/21 05:59 Labs: Laboratory Last Values WBC 5.6 K/mm3 (4.5-11.0) 02/07/21 05:59 RBC 4.32 M/mm3 (3.65-5.03) 02/07/21 05:59 Hgb 11.4 gm/dl (10.1-14.3) 02/07/21 05:59 Hct 35.2 % (30.3-42.9) 02/07/21 05:59 MCV 81 fl (79-97) 02/07/21 05:59 MCH 26 pg (28-32) L 02/07/21 05:59 MCHC 32 % (30-34) 02/07/21 05:59 RDW 16.8 % (13.2-15.2) H 02/07/21 05:59 Plt Count 228 K/mm3 (140-440) 02/07/21 05:59 Lymph % (Auto) 22.8 % (13.4-35.0) 02/07/21 05:59 [place] % (Auto) 7.2 % (0.0-7.3) 02/07/21 05:59 Eos % (Auto) 0.0 % (0.0-4.3) 02/07/21 05:59 Baso % (Auto) 0.1 % (0.0-1.8) 02/07/21 05:59 Lymph # (Auto) 1.3 K/mm3 (1.2-5.4) 02/07/21 05:59 [place] # (Auto) 0.4 K/mm3 (0.0-0.8) 02/07/21 05:59 Eos # (Auto) 0.0 K/mm3 (0.0-0.4) 02/07/21 05:59 Baso # (Auto) 0.0 K/mm3 (0.0-0.1) 02/07/21 05:59 Seg Neutrophils % 69.9 % (40.0-70.0) 02/07/21 05:59 Seg Neutrophils # 3.9 K/mm3 (1.8-7.7) 02/07/21 05:59 D-Dimer 983.48 ng/mlDDU (0-234) H 02/05/21 20:53 Sodium 135 mmol/L (137-145) L 02/07/21 05:59 Potassium 4.3 mmol/L (3.6-5.0) 02/07/21 05:59 Chloride 102.2 mmol/L (98-107) 02/07/21 05:59 Carbon Dioxide 25 mmol/L (22-30) 02/07/21 05:59 Anion Gap 12 mmol/L 02/07/21 05:59 BUN 9 mg/dL (7-17) 02/07/21 05:59 Creatinine 0.7 mg/dL (0.6-1.2) 02/07/21 05:59 Estimated GFR > 60 ml/min 02/07/21 05:59 BUN/Creatinine Ratio 13 % 02/07/21 05:59 Glucose 121 mg/dL (65-100) H 02/07/21 05:59 Lactic Acid 1.60 mmol/L (0.7-2.0) 02/05/21 20:53 Calcium 8.0 mg/dL (8.4-10.2) L 02/07/21 05:59 Ferritin 281.7 ng/mL (10.0-200.0) H 02/05/21 20:53 Total Bilirubin 0.30 mg/dL (0.1-1.2) 02/07/21 05:59 AST 36 units/L (5-40) 02/07/21 05:59 ALT 25 units/L (7-56) 02/07/21 05:59 Alkaline Phosphatase 71 units/L (35-129) 02/07/21 05:59 Lactate Dehydrogenase 426 units/L (91-180) H 02/05/21 20:53 Troponin T < 0.010 ng/mL (0.00-0.029) 02/05/21 20:53 C-Reactive Protein 10.20 mg/dL (0.00-1.30) H 02/05/21 20:53 NT-Pro-B Natriuret Pep 29.94 pg/mL (0-450) 02/05/21 20:53 Total Protein 7.1 g/dL (6.3-8.2) 02/07/21 05:59 Albumin 3.1 g/dL (3.9-5) L 02/07/21 05:59 Albumin/Globulin Ratio 0.8 % 02/07/21 05:59 Procalcitonin 0.19 ng/mL (<0.15) 02/05/21 20:53 HCG, Qual Negative (Negative) 02/05/21 20:53 Urine Color Jackelin (Yellow) 02/06/21 03:26 Urine Turbidity Slightly-cloudy (Clear) 02/06/21 03:26 Urine pH 6.0 (5.0-7.0) 02/06/21 03:26 Ur Specific [place] 1.029 (1.003-1.030) 02/06/21 03:26 Urine Protein >500 mg/dL (Negative) 02/06/21 03:26 Urine Glucose (UA) Neg mg/dL (Negative) 02/06/21 03:26 Urine Ketones Neg mg/dL (Negative) 02/06/21 03:26 Urine Blood Sm (Negative) 02/06/21 03:26 Urine Nitrite Neg (Negative) 02/06/21 03:26 Urine Bilirubin Neg (Negative) 02/06/21 03:26 Urine Urobilinogen < 2.0 mg/dL (<2.0) 02/06/21 03:26 Ur Leukocyte Esterase Neg (Negative) 02/06/21 03:26 Urine WBC (Auto) 5.0 /HPF (0.0-6.0) 02/06/21 03:26 Urine RBC (Auto) 3.0 /HPF (0.0-6.0) 02/06/21 03:26 U Epithel Cells (Auto) 8.0 /HPF (0-13.0) 02/06/21 03:26 Hyaline Casts 1 /LPF 02/06/21 03:26 Urine Mucus Few /HPF 02/06/21 03:26 Coronavirus (PCR) Positive (Negative) A 02/05/21 09:50 Microbiology: Microbiology 02/05/21 20:47 Peripheral/Venous Blood Culture - Preliminary NO GROWTH AFTER 24 HOURS 02/05/21 20:53 Peripheral/Venous Blood Culture - Preliminary NO GROWTH AFTER 24 HOURS Joaquin/IV: Voiding Method External Female Catheter Active Medications - Current Medications Current Medications: Generic Name Dose Route Start Last Admin Trade Name Freq PRN Reason Stop Dose Admin Albuterol 2.5 mg 02/06/21 04:56 Albuterol 2.5 Mg/3 Ml Nebu IH Q4HRT PRN Shortness Of Breath Atenolol 50 mg 02/06/21 10:00 02/06/21 10:14 Atenolol 50 Mg Tab PO 50 mg DAILY [facility] Administration Dexamethasone 6 mg 02/06/21 10:00 02/06/21 10:15 Dexamethasone 4 Mg/Ml Vial IV 02/15/21 10:01 6 mg DAILY [facility] Administration Diclofenac Sodium 75 mg 02/06/21 10:00 02/06/21 23:[address] 75 Mg Tab PO 75 mg BID [facility] Administration Famotidine 20 mg 02/06/21 10:00 02/06/21 23:37 Famotidine 20 Mg Tab PO 20 mg BID [facility] Administration Furosemide 20 mg 02/06/21 04:53 Furosemide 20 Mg Tab PO DAILY PRN SWELLING LEGS Heparin Sodium (Porcine) 5,000 unit 02/06/21 06:00 02/07/21 06:27 Heparin 5,000 Unit/1 Ml Vial SUB-Q 5,000 unit Q8HR [facility] Administration Hydralazine HCl 10 mg 02/06/21 04:56 Hydralazine 20 Mg/1 Ml Inj IV Q6H PRN htn REMDESIVIR 100 mg/ Sodium 250 mls @ 500 mls/hr 02/07/21 21:00 Chloride IV 02/10/21 21:29 Q24HR@2100 [facility] Methocarbamol 500 mg 02/06/21 10:00 02/06/21 23:37 Methocarbamol 500 Mg Tab PO 500 mg BID [facility] Administration Oxycodone/Acetaminophen 1 tab 02/06/21 19:01 02/07/21 03:49 Oxycodone /Acetaminophen 5-325mg Tab PO 1 tab Q6H PRN Administration Pain, Moderate (4-6) Sodium Chloride 50 ml 02/06/21 13:00 02/06/21 14:05 Sodium Chloride 0.9% 50 Ml Ivpb IV 02/10/21 21:01 50 ml Q24HR@2100 [facility] Administration Topiramate 50 mg 02/06/21 10:00 02/06/21 10:31 Topiramate Tab 25 Mg Tab PO Not Given DAILY [facility]
[2021-02-07] MEDS: dexAMETHasone 4 MG/ML VIAL IV SCH (09:12)
[2021-02-07] MEDS: FAMOTIDINE 20 MG TAB PO SCH ×2 (09:12→23:12)
[2021-02-07] MEDS: TOPIRAMATE TAB 25 MG TAB PO SCH (09:13)
[2021-02-07] MEDS: DICLOFENAC DR 75 MG TAB PO SCH ×2 (09:13→23:13)
[2021-02-07] MEDS: atenoloL 50 MG TAB PO SCH (09:14)
--- NOTE | 2021-02-07 09:33 | Electrocardiograph Report ---
[facility] Test Date: 2021-02-05 Test Time: 20:47:21 Pat Name: DARWIN REED Department: Room: A357 1 Gender: F Jig Box Operator: MATTIE : 1975 Requested By: SHAYNE BONE Order Number: [id number] Reading MD: Jalen Vasquez Measurements Intervals [place] Rate: 120 P: 61 LA: 136 QRS: -42 QRSD: 86 T: 24 QT: 306 QTc: 433 Interpretive Statements Sinus tachycardia Probable left atrial enlargement Inferior infarct, old Consider anterior infarct No previous ECG available for comparison Electronically Signed On 02-07-2021 9:33:20 EDT by Jalen Vasquez
--- NOTE | 2021-02-07 13:46 | Progress Note ---
Assessment and Plan Cultures: Blood culture no growth so far. A/P: 45 yo F PMHx morbid obesity, HTN, migraines presents with COVID pneumonia. #COVID-19 pneumonia: Patient presented with a week of symptoms, chest x-ray with diffuse bilateral infiltrates. Inflammatory markers elevated #Acute hypoxemic respiratory failure: Likely secondary to COVID-19 infection. Currently on room air #Morbid obesity: associated with worse COVID outcomes. #Thyroid nodule: should get US Recs: -Dexamethasone 6 mg IV/PO daily for 10 days -Remdesivir 200 mg IV q day x 1 followed by 100 mg IV q day x 4 days as patient is hypoxic. D2 of 5 -Obtain q48-72h inflammatory markers - ferritin, Ddimer, CRP, LDH -Stopped antibiotics due to normal procalcitonin. -Anticoagulation per hospital protocol -Proning as able Patient seems stable, can DC from ID standpoint when stable from a respiratory perspective. Thank you for the consult, we will continue to follow. Michael Dorsey MD [facility] O: [phone] F: [phone] Subjective Date of service: 02/07/21 Interval history: Afebrile, normal white count. Currently on room air. Covid positive Imaging personally reviewed: Chest CTA: No PE. Multifocal airspace disease Objective - Exam Narrative Exam: Physical exam deferred to reduce risk of transmission of COVID-19. Please refer to primary team's note. - Constitutional Vitals: Vital Signs Temp Pulse Resp BP Pulse Ox 98.0 F 79 20 126/77 99 02/07/21 11:21 02/07/21 11:21 02/07/21 12:11 02/07/21 11:21 02/07/21 11:21 Temperature -Last 24 Hours Temperature 98.0 F Temperature 97.6 F Temperature 97.6 F Temperature 97.4 F - Labs CBC & Chem 7: 02/07/21 05:59 02/07/21 05:59 Labs: Abnormal lab results 02/05/21 02/07/21 02/07/21 Range/Units 09:50 05:59 05:59 MCH 26 L (28-32) pg RDW 16.8 H (13.2-15.2) % Sodium 135 L (137-145) mmol/L Glucose 121 H (65-100) mg/dL Calcium 8.0 L (8.4-10.2) mg/dL Albumin 3.1 L (3.9-5) g/dL Coronavirus (PCR) Positive A (Negative)
[2021-02-07] MEDS: REMDESIVIR 100 MG in SODIUM CHLORIDE 0.9% 250ML 250 ML IV SCH (23:13)
[2021-02-07] MEDS: SODIUM CHLORIDE 0.9% 50 ML IVPB IV SCH (23:13)
[2021-02-08] MEDS: oxyCODONE /ACETAMINOPHEN 5-325MG TAB PO PRN ×2 (00:55→13:21)
[2021-02-08] MEDS: HEPARIN 5,000 UNIT/1 ML VIAL SUB-Q SCH ×3 (06:44→22:00)
--- NOTE | 2021-02-08 08:02 | Progress Note ---
Assessment and Plan Assessment and plan: (1) COVID-19 pneumonia Current Visit: Yes Status: Acute Plan to address problem: Admit the patient to the medical floor telemetry. Oxygen via nasal cannula 6 L/min. DuoNeb by nebulizer every 4 hours as needed. Rocephin 2 g IV daily. And Zithromax 500 mg IV daily. Decadron 6 mg IV daily. We will do the blood culture and sputum culture. We also consult infectious disease for evaluation. Recheck CBC BMP in the morning (2) Acute hypoxemic respiratory failure Current Visit: Yes Status: Acute Plan to address problem: Oxygen via nasal cannula 6 L/min. DuoNeb by nebulizer every 4 hours as needed. Rocephin 2 g IV daily. And Zithromax 500 mg IV daily. Decadron 6 mg IV daily. We will do the blood culture and sputum culture. We also consult infectious disease for evaluation. Recheck CBC BMP in the morning. Consult pulmonary if needed (3) Hypertension Current Visit: Yes Status: Acute Plan to address problem: Hydralazine 10 mg IV every 6 hours as needed. We will monitor the blood pressure closely (4) Arthritis Current Visit: Yes Status: Acute Plan to address problem: We will continue the home medication. Patient will follow up with primary care physician as outpatient. (5) DVT prophylaxis Current Visit: Yes Status: Acute Plan to address problem: Heparin 5000 units subcu every 8 hours for DVT prophylaxis. Pepcid 20 mg p.o. twice daily for GI prophylaxis. Patient is a full code 02/07/2021 -Patient admitted for acute hypoxic respiratory failure due to COVID-19 pneumonia, patient is on oxygen support. Patient is on 6 L of oxygen and will titrate down as tolerated -Patient started on IV remdesivir and Decadron. -PT OT evaluation -Patient is on furosemide -ID consulted and recommend to continue current medication regimen 02/08/2021 -Continue on 2L of oxygen and wean off as tolerated -Continue with IV remdesivir and Decadron -IV Lasix -ID consulted and recommend to continue with remdesivir and Decadron History Interval history: Patient was seen and evaluated this morning Patient states she became out of breath with minimal ambulation even going to the bathroom Patient was on 2 L of oxygen Hospitalist Physical - Physical exam Narrative exam: Patient was on 6 L of oxygen. The patient is morbidly obese Vital signs as documented. Head exam is unremarkable. No scleral icterus . Neck is without jugular venous distension, thyromegaly, or carotid bruits. Lungs are clear to auscultation. Cardiac exam reveals regular rate and Rhythm. Abdominal exam reveals normal bowel sounds, nontender, no organomegaly. Extremities are nonedematous and both femoral and pedal pulses are normal. [employer]: Alert and oriented 3. No focal weakness. - Constitutional Vitals: Temp Pulse Resp BP Pulse Ox 97.9 F 57 L 20 148/96 99 02/08/21 04:49 02/08/21 04:49 02/08/21 04:49 02/08/21 04:49 02/08/21 04:49 General appearance: Present: no acute distress, well-nourished HEART Score - HEART Score Troponin: Troponin T < 0.010 ng/mL (0.00-0.029) 02/05/21 20:53 Results - Labs CBC & Chem 7: 02/07/21 05:59 02/08/21 07:29 Labs: Laboratory Last Values WBC 5.6 K/mm3 (4.5-11.0) 02/07/21 05:59 RBC 4.32 M/mm3 (3.65-5.03) 02/07/21 05:59 Hgb 11.4 gm/dl (10.1-14.3) 02/07/21 05:59 Hct 35.2 % (30.3-42.9) 02/07/21 05:59 MCV 81 fl (79-97) 02/07/21 05:59 MCH 26 pg (28-32) L 02/07/21 05:59 MCHC 32 % (30-34) 02/07/21 05:59 RDW 16.8 % (13.2-15.2) H 02/07/21 05:59 Plt Count 228 K/mm3 (140-440) 02/07/21 05:59 Lymph % (Auto) 22.8 % (13.4-35.0) 02/07/21 05:59 [place] % (Auto) 7.2 % (0.0-7.3) 02/07/21 05:59 Eos % (Auto) 0.0 % (0.0-4.3) 02/07/21 05:59 Baso % (Auto) 0.1 % (0.0-1.8) 02/07/21 05:59 Lymph # (Auto) 1.3 K/mm3 (1.2-5.4) 02/07/21 05:59 [place] # (Auto) 0.4 K/mm3 (0.0-0.8) 02/07/21 05:59 Eos # (Auto) 0.0 K/mm3 (0.0-0.4) 02/07/21 05:59 Baso # (Auto) 0.0 K/mm3 (0.0-0.1) 02/07/21 05:59 Seg Neutrophils % 69.9 % (40.0-70.0) 02/07/21 05:59 Seg Neutrophils # 3.9 K/mm3 (1.8-7.7) 02/07/21 05:59 D-Dimer 983.48 ng/mlDDU (0-234) H 02/05/21 20:53 Sodium 135 mmol/L (137-145) L 02/07/21 05:59 Potassium 4.3 mmol/L (3.6-5.0) 02/07/21 05:59 Chloride 102.2 mmol/L (98-107) 02/07/21 05:59 Carbon Dioxide 25 mmol/L (22-30) 02/07/21 05:59 Anion Gap 12 mmol/L 02/07/21 05:59 BUN 9 mg/dL (7-17) 02/07/21 05:59 Creatinine 0.7 mg/dL (0.6-1.2) 02/07/21 05:59 Estimated GFR > 60 ml/min 02/07/21 05:59 BUN/Creatinine Ratio 13 % 02/07/21 05:59 Glucose 121 mg/dL (65-100) H 02/07/21 05:59 Lactic Acid 1.60 mmol/L (0.7-2.0) 02/05/21 20:53 Calcium 8.0 mg/dL (8.4-10.2) L 02/07/21 05:59 Ferritin 281.7 ng/mL (10.0-200.0) H 02/05/21 20:53 Total Bilirubin 0.30 mg/dL (0.1-1.2) 02/07/21 05:59 AST 36 units/L (5-40) 02/07/21 05:59 ALT 25 units/L (7-56) 02/07/21 05:59 Alkaline Phosphatase 71 units/L (35-129) 02/07/21 05:59 Lactate Dehydrogenase 426 units/L (91-180) H 02/05/21 20:53 Troponin T < 0.010 ng/mL (0.00-0.029) 02/05/21 20:53 C-Reactive Protein 10.20 mg/dL (0.00-1.30) H 02/05/21 20:53 NT-Pro-B Natriuret Pep 29.94 pg/mL (0-450) 02/05/21 20:53 Total Protein 7.1 g/dL (6.3-8.2) 02/07/21 05:59 Albumin 3.1 g/dL (3.9-5) L 02/07/21 05:59 Albumin/Globulin Ratio 0.8 % 02/07/21 05:59 Procalcitonin 0.19 ng/mL (<0.15) 02/05/21 20:53 TSH 0.627 mlU/mL (0.270-4.200) 02/07/21 08:20 Free T4 1.22 ng/dL (0.76-1.46) 02/07/21 08:20 HCG, Qual Negative (Negative) 02/05/21 20:53 Urine Color [place] (Yellow) 02/06/21 03:26 Urine Turbidity Slightly-cloudy (Clear) 02/06/21 03:26 Urine pH 6.0 (5.0-7.0) 02/06/21 03:26 Ur Specific [place] 1.029 (1.003-1.030) 02/06/21 03:26 Urine Protein >500 mg/dL (Negative) 02/06/21 03:26 Urine Glucose (UA) Neg mg/dL (Negative) 02/06/21 03:26 Urine Ketones Neg mg/dL (Negative) 02/06/21 03:26 Urine Blood Sm (Negative) 02/06/21 03:26 Urine Nitrite Neg (Negative) 02/06/21 03:26 Urine Bilirubin Neg (Negative) 02/06/21 03:26 Urine Urobilinogen < 2.0 mg/dL (<2.0) 02/06/21 03:26 Ur Leukocyte Esterase Neg (Negative) 02/06/21 03:26 Urine WBC (Auto) 5.0 /HPF (0.0-6.0) 02/06/21 03:26 Urine RBC (Auto) 3.0 /HPF (0.0-6.0) 02/06/21 03:26 U Epithel Cells (Auto) 8.0 /HPF (0-13.0) 02/06/21 03:26 Hyaline Casts 1 /LPF 02/06/21 03:26 Urine Mucus Few /HPF 02/06/21 03:26 Coronavirus (PCR) Positive (Negative) A 02/05/21 09:50 Microbiology: Microbiology 02/05/21 20:47 Peripheral/Venous Blood Culture - Preliminary NO GROWTH AFTER 48 HOURS 02/05/21 20:53 Peripheral/Venous Blood Culture - Preliminary NO GROWTH AFTER 48 HOURS Joaquin/IV: Voiding Method Toilet Active Medications - Current Medications Current Medications: Generic Name Dose Route Start Last Admin Trade Name Freq PRN Reason Stop Dose Admin Albuterol 2.5 mg 02/06/21 04:56 Albuterol 2.5 Mg/3 Ml Nebu IH Q4HRT PRN Shortness Of Breath Atenolol 50 mg 02/06/21 10:00 02/07/21 09:14 Atenolol 50 Mg Tab PO 50 mg DAILY GIA Administration Dexamethasone 6 mg 02/06/21 10:00 02/07/21 09:12 Dexamethasone 4 Mg/Ml Vial IV 02/15/21 10:01 6 mg DAILY GIA Administration Diclofenac Sodium 75 mg 02/06/21 10:00 02/07/21 23:[address] 75 Mg Tab PO 75 mg BID GIA Administration Famotidine 20 mg 02/06/21 10:00 02/07/21 23:12 Famotidine 20 Mg Tab PO 20 mg BID GIA Administration Furosemide 20 mg 02/06/21 04:53 Furosemide 20 Mg Tab PO DAILY PRN SWELLING LEGS Heparin Sodium (Porcine) 5,000 unit 02/06/21 06:00 02/08/21 06:44 Heparin 5,000 Unit/1 Ml Vial SUB-Q 5,000 unit Q8HR GIA Administration Hydralazine HCl 10 mg 02/06/21 04:56 Hydralazine 20 Mg/1 Ml Inj IV Q6H PRN htn REMDESIVIR 100 mg/ Sodium 250 mls @ 500 mls/hr 02/07/21 21:00 02/07/21 23:13 Chloride IV 02/10/21 21:29 500 mls/hr Q24HR@2100 GIA Administration Methocarbamol 500 mg 02/06/21 10:00 02/07/21 23:12 Methocarbamol 500 Mg Tab PO 500 mg BID GIA Administration Oxycodone/Acetaminophen 1 tab 02/06/21 19:01 02/08/21 00:55 Oxycodone /Acetaminophen 5-325mg Tab PO 1 tab Q6H PRN Administration Pain, Moderate (4-6) Sodium Chloride 50 ml 02/06/21 13:00 02/07/21 23:13 Sodium Chloride 0.9% 50 Ml Ivpb IV 02/10/21 21:01 50 ml Q24HR@2100 GIA Administration Topiramate 50 mg 02/06/21 10:00 02/07/21 09:13 Topiramate Tab 25 Mg Tab PO 50 mg DAILY GIA Administration
[2021-02-08 08:30] LABS: Alanine Aminotransferase 24 units/L (7-56); Albumin 2.8 g/dL (3.9-5); BUN/Creatinine Ratio 18; Blood Urea Nitrogen 14 mg/dL (7-17); Calcium 7.8 mg/dL (8.4-10.2); Hemolysis Index 1
[2021-02-08] MEDS: FAMOTIDINE 20 MG TAB PO SCH ×2 (09:58→22:00)
[2021-02-08] MEDS: DICLOFENAC DR 75 MG TAB PO SCH ×2 (09:59→21:59)
[2021-02-08] MEDS: TOPIRAMATE TAB 25 MG TAB PO SCH (10:00)
[2021-02-08] MEDS: atenoloL 50 MG TAB PO SCH (10:00)
[2021-02-08] MEDS: DEXAMETHASONE 4 MG TAB PO SCH (10:12)
--- NOTE | 2021-02-08 10:35 | Progress Note ---
Assessment and Plan Cultures: Blood culture no growth so far. A/P: 45 yo F PMHx morbid obesity, HTN, migraines presents with COVID pneumonia. #COVID-19 pneumonia: Patient presented with a week of symptoms, chest x-ray with diffuse bilateral infiltrates. Inflammatory markers elevated #Acute hypoxemic respiratory failure: Likely secondary to COVID-19 infection. Currently on 7L [place] #Morbid obesity: associated with worse COVID outcomes. #Thyroid nodule: should get US Recs: -Dexamethasone 6 mg IV/PO daily for 10 days -Remdesivir 200 mg IV q day x 1 followed by 100 mg IV q day x 4 days as patient is hypoxic. D3 of 5 -If he requires HFNC would give Actemra -Obtain q48-72h inflammatory markers - ferritin, Ddimer, CRP, LDH -Anticoagulation per hospital protocol -Proning as able Patient seems stable, can DC from ID standpoint when stable from a respiratory perspective. Thank you for the consult, we will continue to follow. Michael Dorsey MD [facility] ([facility] O: [phone] F: [phone] Subjective Date of service: 02/08/21 Interval history: Afebrile, normal white count. Currently on 7 L nasal cannula. Objective - Exam Narrative Exam: Physical exam deferred to reduce risk of transmission of COVID-19. Please refer to primary team's note. - Constitutional Vitals: Vital Signs Temp Pulse Resp BP Pulse Ox 97.9 F 57 L 20 148/96 100 02/08/21 04:49 02/08/21 04:49 02/08/21 09:59 02/08/21 04:49 02/08/21 09:51 Temperature -Last 24 Hours Temperature 97.9 F Temperature 97.7 F Temperature 97.6 F Temperature 98.0 F - Labs CBC & Chem 7: 02/07/21 05:59 02/08/21 07:29 Labs: Abnormal lab results 02/08/21 Range/Units 07:29 Sodium 136 L (137-145) mmol/L Glucose 103 H (65-100) mg/dL Calcium 7.8 L (8.4-10.2) mg/dL Albumin 2.8 L (3.9-5) g/dL
[2021-02-08] MEDS: REMDESIVIR 100 MG in SODIUM CHLORIDE 0.9% 250ML 250 ML IV SCH (22:08)
[2021-02-08] MEDS: SODIUM CHLORIDE 0.9% 50 ML IVPB IV SCH (22:40)
[2021-02-09] MEDS: HEPARIN 5,000 UNIT/1 ML VIAL SUB-Q SCH ×3 (06:01→22:05)
--- NOTE | 2021-02-09 07:57 | Progress Note ---
Assessment and Plan Assessment and plan: (1) COVID-19 pneumonia Current Visit: Yes Status: Acute Plan to address problem: Admit the patient to the medical floor telemetry. Oxygen via nasal cannula 6 L/min. DuoNeb by nebulizer every 4 hours as needed. Rocephin 2 g IV daily. And Zithromax 500 mg IV daily. Decadron 6 mg IV daily. We will do the blood culture and sputum culture. We also consult infectious disease for evaluation. Recheck CBC BMP in the morning (2) Acute hypoxemic respiratory failure Current Visit: Yes Status: Acute Plan to address problem: Oxygen via nasal cannula 6 L/min. DuoNeb by nebulizer every 4 hours as needed. Rocephin 2 g IV daily. And Zithromax 500 mg IV daily. Decadron 6 mg IV daily. We will do the blood culture and sputum culture. We also consult infectious disease for evaluation. Recheck CBC BMP in the morning. Consult pulmonary if needed (3) Hypertension Current Visit: Yes Status: Acute Plan to address problem: Hydralazine 10 mg IV every 6 hours as needed. We will monitor the blood pressure closely (4) Arthritis Current Visit: Yes Status: Acute Plan to address problem: We will continue the home medication. Patient will follow up with primary care physician as outpatient. (5) DVT prophylaxis Current Visit: Yes Status: Acute Plan to address problem: Heparin 5000 units subcu every 8 hours for DVT prophylaxis. Pepcid 20 mg p.o. twice daily for GI prophylaxis. Patient is a full code 02/07/2021 -Patient admitted for acute hypoxic respiratory failure due to COVID-19 pneumonia, patient is on oxygen support. Patient is on 6 L of oxygen and will titrate down as tolerated -Patient started on IV remdesivir and Decadron. -PT OT evaluation -Patient is on furosemide -ID consulted and recommend to continue current medication regimen 02/08/2021 -Continue on 2L of oxygen and wean off as tolerated -Continue with IV remdesivir and Decadron -IV Lasix -ID consulted and recommend to continue with remdesivir and Decadron 02/09/2021 -Patient is on 3 L of oxygen -Continue with remdesivir, Decadron and Lasix History Interval history: Patient was seen and evaluated this morning Patient was on 3 L of oxygen Hospitalist Physical - Physical exam Narrative exam: Patient was on 6 L of oxygen. The patient is morbidly obese Vital signs as documented. Head exam is unremarkable. No scleral icterus . Neck is without jugular venous distension, thyromegaly, or carotid bruits. Lungs are clear to auscultation. Cardiac exam reveals regular rate and Rhythm. Abdominal exam reveals normal bowel sounds, nontender, no organomegaly. Extremities are nonedematous and both femoral and pedal pulses are normal. [employer]: Alert and oriented 3. No focal weakness. - Constitutional Vitals: Temp Pulse Resp BP Pulse Ox 97.6 F 54 L 20 137/85 100 02/09/21 04:28 02/09/21 04:28 02/09/21 04:28 02/09/21 04:28 02/09/21 04:28 General appearance: Present: no acute distress, well-nourished HEART Score - HEART Score Troponin: Troponin T < 0.010 ng/mL (0.00-0.029) 02/05/21 20:53 Results - Labs CBC & Chem 7: 02/07/21 05:59 02/08/21 07:29 Labs: Laboratory Last Values WBC 5.6 K/mm3 (4.5-11.0) 02/07/21 05:59 RBC 4.32 M/mm3 (3.65-5.03) 02/07/21 05:59 Hgb 11.4 gm/dl (10.1-14.3) 02/07/21 05:59 Hct 35.2 % (30.3-42.9) 02/07/21 05:59 MCV 81 fl (79-97) 02/07/21 05:59 MCH 26 pg (28-32) L 02/07/21 05:59 MCHC 32 % (30-34) 02/07/21 05:59 RDW 16.8 % (13.2-15.2) H 02/07/21 05:59 Plt Count 228 K/mm3 (140-440) 02/07/21 05:59 Lymph % (Auto) 22.8 % (13.4-35.0) 02/07/21 05:59 [place] % (Auto) 7.2 % (0.0-7.3) 02/07/21 05:59 Eos % (Auto) 0.0 % (0.0-4.3) 02/07/21 05:59 Baso % (Auto) 0.1 % (0.0-1.8) 02/07/21 05:59 Lymph # (Auto) 1.3 K/mm3 (1.2-5.4) 02/07/21 05:59 [place] # (Auto) 0.4 K/mm3 (0.0-0.8) 02/07/21 05:59 Eos # (Auto) 0.0 K/mm3 (0.0-0.4) 02/07/21 05:59 Baso # (Auto) 0.0 K/mm3 (0.0-0.1) 02/07/21 05:59 Seg Neutrophils % 69.9 % (40.0-70.0) 02/07/21 05:59 Seg Neutrophils # 3.9 K/mm3 (1.8-7.7) 02/07/21 05:59 D-Dimer 983.48 ng/mlDDU (0-234) H 02/05/21 20:53 Sodium 136 mmol/L (137-145) L 02/08/21 07:29 Potassium 5.0 mmol/L (3.6-5.0) 02/08/21 07:29 Chloride 104.4 mmol/L (98-107) 02/08/21 07:29 Carbon Dioxide 26 mmol/L (22-30) 02/08/21 07:29 Anion Gap 11 mmol/L 02/08/21 07:29 BUN 14 mg/dL (7-17) 02/08/21 07:29 Creatinine 0.8 mg/dL (0.6-1.2) 02/08/21 07:29 Estimated GFR > 60 ml/min 02/08/21 07:29 BUN/Creatinine Ratio 18 % 02/08/21 07:29 Glucose 103 mg/dL (65-100) H 02/08/21 07:29 Lactic Acid 1.60 mmol/L (0.7-2.0) 02/05/21 20:53 Calcium 7.8 mg/dL (8.4-10.2) L 02/08/21 07:29 Ferritin 281.7 ng/mL (10.0-200.0) H 02/05/21 20:53 Total Bilirubin 0.20 mg/dL (0.1-1.2) 02/08/21 07:29 AST 25 units/L (5-40) 02/08/21 07:29 ALT 24 units/L (7-56) 02/08/21 07:29 Alkaline Phosphatase 62 units/L (35-129) 02/08/21 07:29 Lactate Dehydrogenase 426 units/L (91-180) H 02/05/21 20:53 Troponin T < 0.010 ng/mL (0.00-0.029) 02/05/21 20:53 C-Reactive Protein 10.20 mg/dL (0.00-1.30) H 02/05/21 20:53 NT-Pro-B Natriuret Pep 29.94 pg/mL (0-450) 02/05/21 20:53 Total Protein 6.7 g/dL (6.3-8.2) 02/08/21 07:29 Albumin 2.8 g/dL (3.9-5) L 02/08/21 07:29 Albumin/Globulin Ratio 0.7 % 02/08/21 07:29 Procalcitonin 0.19 ng/mL (<0.15) 02/05/21 20:53 TSH 0.627 mlU/mL (0.270-4.200) 02/07/21 08:20 Free T4 1.22 ng/dL (0.76-1.46) 02/07/21 08:20 HCG, Qual Negative (Negative) 02/05/21 20:53 Urine Color [place] (Yellow) 02/06/21 03:26 Urine Turbidity Slightly-cloudy (Clear) 02/06/21 03:26 Urine pH 6.0 (5.0-7.0) 02/06/21 03:26 Ur Specific [place] 1.029 (1.003-1.030) 02/06/21 03:26 Urine Protein >500 mg/dL (Negative) 02/06/21 03:26 Urine Glucose (UA) Neg mg/dL (Negative) 02/06/21 03:26 Urine Ketones Neg mg/dL (Negative) 02/06/21 03:26 Urine Blood Sm (Negative) 02/06/21 03:26 Urine Nitrite Neg (Negative) 02/06/21 03:26 Urine Bilirubin Neg (Negative) 02/06/21 03:26 Urine Urobilinogen < 2.0 mg/dL (<2.0) 02/06/21 03:26 Ur Leukocyte Esterase Neg (Negative) 02/06/21 03:26 Urine WBC (Auto) 5.0 /HPF (0.0-6.0) 02/06/21 03:26 Urine RBC (Auto) 3.0 /HPF (0.0-6.0) 02/06/21 03:26 U Epithel Cells (Auto) 8.0 /HPF (0-13.0) 02/06/21 03:26 Hyaline Casts 1 /LPF 02/06/21 03:26 Urine Mucus Few /HPF 02/06/21 03:26 Coronavirus (PCR) Positive (Negative) A 02/05/21 09:50 Microbiology: Microbiology 02/05/21 20:47 Peripheral/Venous Blood Culture - Preliminary NO GROWTH AFTER 72 HOURS 02/05/21 20:53 Peripheral/Venous Blood Culture - Preliminary NO GROWTH AFTER 72 HOURS Joaquin/IV: Voiding Method Toilet Active Medications - Current Medications Current Medications: Generic Name Dose Route Start Last Admin Trade Name Freq PRN Reason Stop Dose Admin Albuterol 2.5 mg 02/06/21 04:56 Albuterol 2.5 Mg/3 Ml Nebu IH Q4HRT PRN Shortness Of Breath Atenolol 50 mg 02/06/21 10:00 02/08/21 10:00 Atenolol 50 Mg Tab PO 50 mg DAILY GIA Administration Dexamethasone 6 mg 02/08/21 10:00 02/08/21 10:12 Dexamethasone 4 Mg Tab PO 02/15/21 12:00 6 mg DAILY GIA Administration Diclofenac Sodium 75 mg 02/06/21 10:00 02/08/21 21:[address] 75 Mg Tab PO 75 mg BID GIA Administration Famotidine 20 mg 02/06/21 10:00 02/08/21 22:00 Famotidine 20 Mg Tab PO 20 mg BID GIA Administration Furosemide 20 mg 02/06/21 04:53 Furosemide 20 Mg Tab PO DAILY PRN SWELLING LEGS Heparin Sodium (Porcine) 5,000 unit 02/06/21 06:00 02/09/21 06:01 Heparin 5,000 Unit/1 Ml Vial SUB-Q 5,000 unit Q8HR GIA Administration Hydralazine HCl 10 mg 02/06/21 04:56 Hydralazine 20 Mg/1 Ml Inj IV Q6H PRN htn REMDESIVIR 100 mg/ Sodium 250 mls @ 500 mls/hr 02/07/21 21:00 02/08/21 22:08 Chloride IV 02/10/21 21:29 500 mls/hr Q24HR@2100 GIA Administration Methocarbamol 500 mg 02/06/21 10:00 02/08/21 21:59 Methocarbamol 500 Mg Tab PO 500 mg BID GIA Administration Oxycodone/Acetaminophen 1 tab 02/06/21 19:01 02/08/21 13:21 Oxycodone /Acetaminophen 5-325mg Tab PO 1 tab Q6H PRN Administration Pain, Moderate (4-6) Sodium Chloride 50 ml 02/06/21 13:00 02/08/21 22:40 Sodium Chloride 0.9% 50 Ml Ivpb IV 02/10/21 21:01 50 ml Q24HR@2100 GIA Administration Topiramate 50 mg 02/06/21 10:00 02/08/21 10:00 Topiramate Tab 25 Mg Tab PO 50 mg DAILY GIA Administration
[2021-02-09] MEDS: DICLOFENAC DR 75 MG TAB PO SCH ×2 (09:19→22:05)
[2021-02-09 09:20] LABS: Alanine Aminotransferase 29 units/L (7-56); Albumin 3.1 g/dL (3.9-5); BUN/Creatinine Ratio 20; Blood Urea Nitrogen 16 mg/dL (7-17); Calcium 8.1 mg/dL (8.4-10.2); Hemolysis Index 7
[2021-02-09] MEDS: TOPIRAMATE TAB 25 MG TAB PO SCH (09:20)
[2021-02-09] MEDS: FAMOTIDINE 20 MG TAB PO SCH ×2 (09:20→22:05)
[2021-02-09] MEDS: DEXAMETHASONE 4 MG TAB PO SCH (09:20)
[2021-02-09] MEDS: atenoloL 50 MG TAB PO SCH (09:21)
--- NOTE | 2021-02-09 18:30 | Progress Note ---
Assessment and Plan Cultures: Blood culture no growth so far. A/P: 45 yo F PMHx morbid obesity, HTN, migraines presents with COVID pneumonia. #COVID-19 pneumonia: Patient presented with a week of symptoms, chest x-ray with diffuse bilateral infiltrates. Inflammatory markers elevated #Acute hypoxemic respiratory failure: Likely secondary to COVID-19 infection. Currently on 3L [place] #Morbid obesity: associated with worse COVID outcomes. #Thyroid nodule: should get US Recs: -Dexamethasone 6 mg IV/PO daily for 10 days -Remdesivir 200 mg IV q day x 1 followed by 100 mg IV q day x 4 days as patient is hypoxic. D4 of 5 -If he requires HFNC would give Actemra -Obtain q48-72h inflammatory markers - ferritin, Ddimer, CRP, LDH -Anticoagulation per hospital protocol -Proning as able Recommend 6-minute walk test prior to discharge. Patient seems stable, can DC from ID standpoint when stable from a respiratory perspective. Thank you for the consult, we will sign off. Please call questions. Michael Dorsey MD [facility] ([facility] O: [phone] F: [phone] Subjective Date of service: 02/09/21 Interval history: Afebrile, normal white count. Currently on 3 L nasal cannula. Objective - Exam Narrative Exam: Physical exam deferred to reduce risk of transmission of COVID-19. Please refer to primary team's note. - Constitutional Vitals: Vital Signs Temp Pulse Resp BP Pulse Ox 97.7 F 64 20 123/77 98 02/09/21 11:43 02/09/21 11:43 02/09/21 11:43 02/09/21 11:43 02/09/21 11:43 Temperature -Last 24 Hours Temperature 97.7 F Temperature 97.6 F Temperature 97.7 F - Labs CBC & Chem 7: 02/07/21 05:59 02/09/21 08:26 Labs: Abnormal lab results 02/09/21 Range/Units 08:26 Calcium 8.1 L (8.4-10.2) mg/dL Albumin 3.1 L (3.9-5) g/dL
[2021-02-09] MEDS: REMDESIVIR 100 MG in SODIUM CHLORIDE 0.9% 250ML 250 ML IV SCH (22:05)
[2021-02-09] MEDS: SODIUM CHLORIDE 0.9% 50 ML IVPB IV SCH (22:40)
[2021-02-10] MEDS: HEPARIN 5,000 UNIT/1 ML VIAL SUB-Q SCH ×3 (06:36→21:41)
--- NOTE | 2021-02-10 08:21 | Progress Note ---
Assessment and Plan Assessment and plan: (1) COVID-19 pneumonia Current Visit: Yes Status: Acute Plan to address problem: Admit the patient to the medical floor telemetry. Oxygen via nasal cannula 6 L/min. DuoNeb by nebulizer every 4 hours as needed. Rocephin 2 g IV daily. And Zithromax 500 mg IV daily. Decadron 6 mg IV daily. We will do the blood culture and sputum culture. We also consult infectious disease for evaluation. Recheck CBC BMP in the morning (2) Acute hypoxemic respiratory failure Current Visit: Yes Status: Acute Plan to address problem: Oxygen via nasal cannula 6 L/min. DuoNeb by nebulizer every 4 hours as needed. Rocephin 2 g IV daily. And Zithromax 500 mg IV daily. Decadron 6 mg IV daily. We will do the blood culture and sputum culture. We also consult infectious disease for evaluation. Recheck CBC BMP in the morning. Consult pulmonary if needed (3) Hypertension Current Visit: Yes Status: Acute Plan to address problem: Hydralazine 10 mg IV every 6 hours as needed. We will monitor the blood pressure closely (4) Arthritis Current Visit: Yes Status: Acute Plan to address problem: We will continue the home medication. Patient will follow up with primary care physician as outpatient. (5) DVT prophylaxis Current Visit: Yes Status: Acute Plan to address problem: Heparin 5000 units subcu every 8 hours for DVT prophylaxis. Pepcid 20 mg p.o. twice daily for GI prophylaxis. Patient is a full code 02/07/2021 -Patient admitted for acute hypoxic respiratory failure due to COVID-19 pneumonia, patient is on oxygen support. Patient is on 6 L of oxygen and will titrate down as tolerated -Patient started on IV remdesivir and Decadron. -PT OT evaluation -Patient is on furosemide -ID consulted and recommend to continue current medication regimen 02/08/2021 -Continue on 2L of oxygen and wean off as tolerated -Continue with IV remdesivir and Decadron -IV Lasix -ID consulted and recommend to continue with remdesivir and Decadron 02/09/2021 -Patient is on 3 L of oxygen -Continue with remdesivir, Decadron and Lasix 02/10/2021 -Patient will finish her dose of it today, continue with Decadron and Lasix. -Patient was on 2 L of oxygen. -Will wean as tolerated -Counseled extensively about weight loss -Patient can be discharged tomorrow if she is off oxygen. Need outpatient evaluation for her thyroid nodule. History Interval history: Patient was seen and evaluated this morning Patient was on 2L of oxygen Hospitalist Physical - Physical exam Narrative exam: Patient was on 6 L of oxygen. The patient is morbidly obese Vital signs as documented. Head exam is unremarkable. No scleral icterus . Neck is without jugular venous distension, thyromegaly, or carotid bruits. Lungs are clear to auscultation. Cardiac exam reveals regular rate and Rhythm. Abdominal exam reveals normal bowel sounds, nontender, no organomegaly. Extremities are nonedematous and both femoral and pedal pulses are normal. HEADSTART TEACHER: Alert and oriented 3. No focal weakness. - Constitutional Vitals: Temp Pulse Resp BP Pulse Ox 98.0 F 53 L 18 119/80 100 02/10/21 03:51 02/10/21 06:35 02/10/21 06:35 02/10/21 03:51 02/10/21 06:35 General appearance: Present: no acute distress, well-nourished HEART Score - HEART Score Troponin: Troponin T < 0.010 ng/mL (0.00-0.029) 02/05/21 20:53 Results - Labs CBC & Chem 7: 02/07/21 05:59 02/09/21 08:26 Labs: Laboratory Last Values WBC 5.6 K/mm3 (4.5-11.0) 02/07/21 05:59 RBC 4.32 M/mm3 (3.65-5.03) 02/07/21 05:59 Hgb 11.4 gm/dl (10.1-14.3) 02/07/21 05:59 Hct 35.2 % (30.3-42.9) 02/07/21 05:59 MCV 81 fl (79-97) 02/07/21 05:59 MCH 26 pg (28-32) L 02/07/21 05:59 MCHC 32 % (30-34) 02/07/21 05:59 RDW 16.8 % (13.2-15.2) H 02/07/21 05:59 Plt Count 228 K/mm3 (140-440) 02/07/21 05:59 Lymph % (Auto) 22.8 % (13.4-35.0) 02/07/21 05:59 Nicholas % (Auto) 7.2 % (0.0-7.3) 02/07/21 05:59 Eos % (Auto) 0.0 % (0.0-4.3) 02/07/21 05:59 Baso % (Auto) 0.1 % (0.0-1.8) 02/07/21 05:59 Lymph # (Auto) 1.3 K/mm3 (1.2-5.4) 02/07/21 05:59 Nicholas # (Auto) 0.4 K/mm3 (0.0-0.8) 02/07/21 05:59 Eos # (Auto) 0.0 K/mm3 (0.0-0.4) 02/07/21 05:59 Baso # (Auto) 0.0 K/mm3 (0.0-0.1) 02/07/21 05:59 Seg Neutrophils % 69.9 % (40.0-70.0) 02/07/21 05:59 Seg Neutrophils # 3.9 K/mm3 (1.8-7.7) 02/07/21 05:59 D-Dimer 983.48 ng/mlDDU (0-234) H 02/05/21 20:53 Sodium 138 mmol/L (137-145) 02/09/21 08:26 Potassium 4.7 mmol/L (3.6-5.0) 02/09/21 08:26 Chloride 104.4 mmol/L (98-107) 02/09/21 08:26 Carbon Dioxide 26 mmol/L (22-30) 02/09/21 08:26 Anion Gap 12 mmol/L 02/09/21 08:26 BUN 16 mg/dL (7-17) 02/09/21 08:26 Creatinine 0.8 mg/dL (0.6-1.2) 02/09/21 08:26 Estimated GFR > 60 ml/min 02/09/21 08:26 BUN/Creatinine Ratio 20 % 02/09/21 08:26 Glucose 87 mg/dL (65-100) 02/09/21 08:26 Lactic Acid 1.60 mmol/L (0.7-2.0) 02/05/21 20:53 Calcium 8.1 mg/dL (8.4-10.2) L 02/09/21 08:26 Ferritin 281.7 ng/mL (10.0-200.0) H 02/05/21 20:53 Total Bilirubin 0.20 mg/dL (0.1-1.2) 02/09/21 08:26 AST 27 units/L (5-40) 02/09/21 08:26 ALT 29 units/L (7-56) 02/09/21 08:26 Alkaline Phosphatase 62 units/L (35-129) 02/09/21 08:26 Lactate Dehydrogenase 426 units/L (91-180) H 02/05/21 20:53 Troponin T < 0.010 ng/mL (0.00-0.029) 02/05/21 20:53 C-Reactive Protein 10.20 mg/dL (0.00-1.30) H 02/05/21 20:53 NT-Pro-B Natriuret Pep 29.94 pg/mL (0-450) 02/05/21 20:53 Total Protein 6.9 g/dL (6.3-8.2) 02/09/21 08:26 Albumin 3.1 g/dL (3.9-5) L 02/09/21 08:26 Albumin/Globulin Ratio 0.8 % 02/09/21 08:26 Procalcitonin 0.19 ng/mL (<0.15) 02/05/21 20:53 TSH 0.627 mlU/mL (0.270-4.200) 02/07/21 08:20 Free T4 1.22 ng/dL (0.76-1.46) 02/07/21 08:20 HCG, Qual Negative (Negative) 02/05/21 20:53 Urine Color Jackelin (Yellow) 02/06/21 03:26 Urine Turbidity Slightly-cloudy (Clear) 02/06/21 03:26 Urine pH 6.0 (5.0-7.0) 02/06/21 03:26 Ur Specific Imogene 1.029 (1.003-1.030) 02/06/21 03:26 Urine Protein >500 mg/dL (Negative) 02/06/21 03:26 Urine Glucose (UA) Neg mg/dL (Negative) 02/06/21 03:26 Urine Ketones Neg mg/dL (Negative) 02/06/21 03:26 Urine Blood Sm (Negative) 02/06/21 03:26 Urine Nitrite Neg (Negative) 02/06/21 03:26 Urine Bilirubin Neg (Negative) 02/06/21 03:26 Urine Urobilinogen < 2.0 mg/dL (<2.0) 02/06/21 03:26 Ur Leukocyte Esterase Neg (Negative) 02/06/21 03:26 Urine WBC (Auto) 5.0 /HPF (0.0-6.0) 02/06/21 03:26 Urine RBC (Auto) 3.0 /HPF (0.0-6.0) 02/06/21 03:26 U Epithel Cells (Auto) 8.0 /HPF (0-13.0) 02/06/21 03:26 Hyaline Casts 1 /LPF 02/06/21 03:26 Urine Mucus Few /HPF 02/06/21 03:26 Coronavirus (PCR) Positive (Negative) A 02/05/21 09:50 Microbiology: Microbiology 02/05/21 20:47 Peripheral/Venous Blood Culture - Preliminary NO GROWTH AFTER 4 DAYS 02/05/21 20:53 Peripheral/Venous Blood Culture - Preliminary NO GROWTH AFTER 4 DAYS Joaquin/IV: Voiding Method Toilet Active Medications - Current Medications Current Medications: Generic Name Dose Route Start Last Admin Trade Name Freq PRN Reason Stop Dose Admin Albuterol 2.5 mg 02/06/21 04:56 Albuterol 2.5 Mg/3 Ml Nebu IH Q4HRT PRN Shortness Of Breath Atenolol 50 mg 02/06/21 10:00 02/09/21 09:21 Atenolol 50 Mg Tab PO 50 mg DAILY GIA Administration Dexamethasone 6 mg 02/08/21 10:00 02/09/21 09:20 Dexamethasone 4 Mg Tab PO 02/15/21 12:00 6 mg DAILY GIA Administration Diclofenac Sodium 75 mg 02/06/21 10:00 02/09/21 22:[address] 75 Mg Tab PO 75 mg BID GIA Administration Famotidine 20 mg 02/06/21 10:00 02/09/21 22:05 Famotidine 20 Mg Tab PO 20 mg BID GIA Administration Furosemide 20 mg 02/06/21 04:53 Furosemide 20 Mg Tab PO DAILY PRN SWELLING LEGS Heparin Sodium (Porcine) 5,000 unit 02/06/21 06:00 02/10/21 06:36 Heparin 5,000 Unit/1 Ml Vial SUB-Q 5,000 unit Q8HR GIA Administration Hydralazine HCl 10 mg 02/06/21 04:56 Hydralazine 20 Mg/1 Ml Inj IV Q6H PRN htn REMDESIVIR 100 mg/ Sodium 250 mls @ 500 mls/hr 02/07/21 21:00 02/09/21 22:05 Chloride IV 02/10/21 21:29 500 mls/hr Q24HR@2100 GIA Administration Methocarbamol 500 mg 02/06/21 10:00 02/09/21 22:05 Methocarbamol 500 Mg Tab PO 500 mg BID GIA Administration Oxycodone/Acetaminophen 1 tab 02/06/21 19:01 02/08/21 13:21 Oxycodone /Acetaminophen 5-325mg Tab PO 1 tab Q6H PRN Administration Pain, Moderate (4-6) Sodium Chloride 50 ml 02/06/21 13:00 02/09/21 22:40 Sodium Chloride 0.9% 50 Ml Ivpb IV 02/10/21 21:01 50 ml Q24HR@2100 GIA Administration Topiramate 50 mg 02/06/21 10:00 02/09/21 09:20 Topiramate Tab 25 Mg Tab PO 50 mg DAILY GIA Administration
[2021-02-10] MEDS: TOPIRAMATE TAB 25 MG TAB PO SCH (09:40)
[2021-02-10] MEDS: FAMOTIDINE 20 MG TAB PO SCH ×2 (09:40→21:44)
[2021-02-10] MEDS: DICLOFENAC DR 75 MG TAB PO SCH ×2 (09:41→21:40)
[2021-02-10] MEDS: DEXAMETHASONE 4 MG TAB PO SCH (09:41)
[2021-02-10] MEDS: atenoloL 50 MG TAB PO SCH (09:43)
[2021-02-10] MEDS: REMDESIVIR 100 MG in SODIUM CHLORIDE 0.9% 250ML 250 ML IV SCH (21:42)
[2021-02-10] MEDS: SODIUM CHLORIDE 0.9% 50 ML IVPB IV SCH (21:43)
[2021-02-10] MEDS: oxyCODONE /ACETAMINOPHEN 5-325MG TAB PO PRN (22:53)
[2021-02-11] MEDS: HEPARIN 5,000 UNIT/1 ML VIAL SUB-Q SCH ×2 (05:53→13:10)
[2021-02-11] MEDS: DICLOFENAC DR 75 MG TAB PO SCH (09:35)
[2021-02-11] MEDS: atenoloL 50 MG TAB PO SCH (09:35)
[2021-02-11] MEDS: FAMOTIDINE 20 MG TAB PO SCH (09:36)
[2021-02-11] MEDS: DEXAMETHASONE 4 MG TAB PO SCH (09:36)
[2021-02-11] MEDS: TOPIRAMATE TAB 25 MG TAB PO SCH (09:36)
[2021-02-11 09:37] VITALS: BP 129/66
--- NOTE | 2021-02-11 10:32 | Discharge Summary ---
Providers - Providers Date of Admission: 02/06/21 08:17 Attending physician: OTILIO KAMINSKI MD 02/06/21 04:17 Consult to Physician [CONS] Urgent Comment: Consulting Provider: EMERITA TAYLOR Physician Instructions: Reason For Exam: covid 02/07/21 07:55 Physical Therapy Evaluation and Treat [CONS] Routine Comment: Reason For Exam: hypoxia Primary care physician: ARBOREAL SCIENTIST Hospitalization Reason for admission: shortness of breath Condition: Good Hospital course: 45 years old female with history of hypertension, arthritis and migraine was brought to the hospital because of progressive shortness of breath for last 1 to 2 days. Patient breathing labored. Patient's HR 114, temp 99.7F. Patient was tested + covid last thursday. Patient o2 started @6L/min via NC, RR 26-27bpm. In the ER patient chest x-ray shows patchy bilateral pulmonary opacities and interstitial prominence favor pulmonary edema although an infectious process cannot be completely excluded 02/07/2021 -Patient admitted for acute hypoxic respiratory failure due to COVID-19 pneumonia, patient is on oxygen support. Patient is on 6 L of oxygen and will titrate down as tolerated -Patient started on IV remdesivir and Decadron. -PT OT evaluation -Patient is on furosemide -ID consulted and recommend to continue current medication regimen 02/08/2021 -Continue on 2L of oxygen and wean off as tolerated -Continue with IV remdesivir and Decadron -IV Lasix -ID consulted and recommend to continue with remdesivir and Decadron 02/09/2021 -Patient is on 3 L of oxygen -Continue with remdesivir, Decadron and Lasix 02/10/2021 -Patient will finish her dose of it today, continue with Decadron and Lasix. -Patient was on 2 L of oxygen. -Will wean as tolerated -Counseled extensively about weight loss -Patient can be discharged tomorrow if she is off oxygen. Need outpatient evaluation for her thyroid nodule. 02/11: Patient was treated with IV remdesivir and oxygen was improving and today is down to 1 liter. Outpatient Oxygen eval prior to discharge. Patient in the hospital diagnosed with COVID-19 was treated with Decadron and remdesivir. With ID and pulmonary input noted. She clinically has improved today. I did have extensive discussion with her about continuing isolation at this social distancing to ensure family safe. Also to complete her recommended medication. She is morbidly obese I did discuss extensively with her the need to better manage her weight and weight loss was recommended she verbalized understanding. She is medically stable to be discharged she is no longer needing oxygen at this time. (1) COVID-19 pneumonia Current Visit: Yes Status: Acute Plan to address problem: Admit the patient to the medical floor telemetry. Oxygen via nasal cannula 6 L/min. DuoNeb by nebulizer every 4 hours as needed. Rocephin 2 g IV daily. And Zithromax 500 mg IV daily. Decadron 6 mg IV daily. We will do the blood culture and sputum culture. We also consult infectious disease for evaluation. Recheck CBC BMP in the morning (2) Acute hypoxemic respiratory failure Current Visit: Yes Status: Acute Plan to address problem: Oxygen via nasal cannula 6 L/min. DuoNeb by nebulizer every 4 hours as needed. Rocephin 2 g IV daily. And Zithromax 500 mg IV daily. Decadron 6 mg IV daily. We will do the blood culture and sputum culture. We also consult infectious disease for evaluation. Recheck CBC BMP in the morning. Consult pulmonary if needed (3) Hypertension Current Visit: Yes Status: Acute Plan to address problem: Hydralazine 10 mg IV every 6 hours as needed. We will monitor the blood pressure closely (4) Arthritis Current Visit: Yes Status: Acute Plan to address problem: We will continue the home medication. Patient will follow up with primary care physician as outpatient. Disposition: TO HOME OR SELFCARE Final Discharge Diagnosis (Prints w/discharge instructions): covid pneumonia Time spent for discharge: 35 mins Core Measure Documentation - Palliative Care Palliative Care/ Comfort Measures: Not Applicable - Core Measures Any of the following diagnoses?: none Exam - Physical Exam Narrative exam: VITAL SIGNS: Reviewed. GENERAL: The patient appears normally developed, morbidly obese vital signs as documented. HEAD: No signs of head trauma. EYES: Pupils are equal. Extraocular motions intact. EARS: Hearing grossly intact. MOUTH: Oropharynx is normal. NECK: No adenopathy, no JVD. CHEST: Chest with diminished breath sounds bilaterally. No wheezes, rales, or rhonchi. CARDIAC: Regular rate and rhythm. S1 and S2, without murmurs, gallops, or rubs. VASCULAR: No Edema. Peripheral pulses normal and equal in all extremities. ABDOMEN: Soft, non tender and non distended. No rebound or guarding, and no masses palpated. Bowel Sounds normal. MUSCULOSKELETAL: Good range of motion of all major joints. Extremities without clubbing, cyanosis or edema. NEUROLOGIC EXAM: Alert and oriented x 3 No focal sensory or strength deficits. Speech normal. Follows commands. PSYCHIATRIC: Mood normal. SKIN: detail exam as documented in skin assessment - Constitutional Vitals: Temp Pulse Resp BP Pulse Ox 98.0 F 52 L 16 129/66 100 02/11/21 04:19 02/11/21 04:19 02/11/21 04:19 02/11/21 09:35 02/11/21 04:19 Plan Activity: advance as tolerated, fall precautions Diet: low fat Special Instructions: record daily weights, record daily BP diary Follow up with: PRIMARY CARE, [Primary Care Provider] - 3-5 Days IGOR WALLACE MD [Staff Physician] - 7 Days Prescriptions: dexAMETHasone [Dexamethasone] 6 mg PO DAILY #5 tablet Famotidine [Pepcid] 20 mg PO BID #30 tablet Ascorbic Acid [Vitamin C] 1,000 mg PO DAILY #30 tablet Cholecalciferol (Vitamin D3) [Vitamin D3] 5,000 unit PO DAILY #30 tablet
== END 2021-02-11 13:45 | disposition home or self-care (01) | DRG 177 ==
LOC: ED 18:48 → 3A 02-06 04:18 → OBSVTOIN 02-06 08:17
PROVIDERS: ADMIT Hospitalist; ATTEND Internal Medicine
PROC: XW033E5 Introduction of Remdesivir Anti-infective into Peripheral Vein, Percutaneous Approach, New Technology Group 5 (ICD-10-PCS; principal; 2021-02-06)
DX: U07.1 COVID-19 (principal); J96.01 Acute respiratory failure with hypoxia; J12.82 Pneumonia due to coronavirus disease 2019; Z68.43 Body mass index [BMI] 50.0-59.9, adult; I10 Essential (primary) hypertension; M19.90 Unspecified osteoarthritis, unspecified site; E04.1 Nontoxic single thyroid nodule; G43.909 Migraine, unspecified, not intractable, without status migrainosus; E66.01 Morbid (severe) obesity due to excess calories; Z79.899 Other long term (current) drug therapy; Z79.891 Long term (current) use of opiate analgesic; Z79.82 Long term (current) use of aspirin; Z79.01 Long term (current) use of anticoagulants; Z88.8 Allergy status to other drugs, medicaments and biological substances; Z87.891 Personal history of nicotine dependence
CPT/HCPCS: 36415; 71046; 71275; 80053; 81001; 82140; 82728; 82947; 82962; 83520; 83615; 83880; 84145; 84439; 84443; 84484; 84703; 85025; 85379; 86140; 87040; 93005; 93970; 96365; 96367; 96375; G0378; J0456; J0696; J1100; J1644; J7030; J8540; Q9967; U0003

== ENCOUNTER 2021-04-03 08:07 | Outpatient (CLI) | payer BC ==
--- NOTE | 2021-04-03 09:23 | Vascular Lab Report ---
DUPLEX DOPPLER LOWER EXTREMITY VEINS, BILATERAL INDICATION: LEG EDEMA,PRIOR COVID. Swelling TECHNIQUE: Duplex doppler imaging was performed through the veins of both lower extremities using ve nous compression and other maneuvers. COMPARISON: 02/06/2021. FINDINGS: Right Common femoral vein: Negative. Right Superficial femoral vein: Negative. Right Popliteal vein: Negative. Right Calf veins: Negative. Left Common femoral vein: Negative. Left Superficial femoral vein: Negative. Left Popliteal vein: Negative. Left Calf veins: Negative. Additional findings: None. IMPRESSION: No sonographic evidence for DVT in either lower extremity. Signer Name: Ramon Mendoza Jr, MD Signed: 04/03/2021 9:19 AM Workstation Name: [id number]
== END 2021-04-03 08:08 | disposition home or self-care (01) ==
LOC: VAS 08:07
PROVIDERS: ATTEND Specialist
DX: R60.0 Localized edema (principal); Z86.16 Personal history of COVID-19
CPT/HCPCS: 93970

== ENCOUNTER 2021-04-19 09:22 | Outpatient (CLI) | payer BC | END 2021-04-19 09:23 | disposition home or self-care (01) | LOC: ECHO 09:22 | PROVIDERS: ATTEND Specialist | DX: R00.0 Tachycardia, unspecified (principal); R60.9 Edema, unspecified | CPT/HCPCS: 93306 ==

== ENCOUNTER 2021-08-20 10:16 | Outpatient (CLI) | payer OTHER ==
--- NOTE | 2021-08-20 13:50 | Fluoroscopy Report ---
MODIFIED BARIUM SWALLOW INDICATION: DYSPHAGIA TECHNIQUE: Swallowing was evaluated in the lateral position under direct fluoroscopy. FINDINGS: The patient was evaluated with thin liquids, puree, semisolid and solid consistencies. Deglutition was normal. No evidence for penetration or aspiration. IMPRESSION: Unremarkable exam. Fluoroscopic time: 1.2 minutes Number of fluoroscopic images: 1 Signer Name: Ramon Mendoza Jr, MD Signed: 08/20/2021 1:45 PM Workstation Name: [id number]
== END 2021-08-20 10:17 | disposition home or self-care (01) ==
LOC: PT 10:16
PROVIDERS: ATTEND Specialist
DX: R13.10 Dysphagia, unspecified (principal)
CPT/HCPCS: 74230

== ENCOUNTER 2022-03-26 09:10 | Outpatient (CLI) | payer BC, OTHER ==
--- NOTE | 2022-03-27 12:10 | Electrocardiograph Report ---
[facility] Test Date: 2022-03-26 Test Time: 10:58:37 Pat Name: DARWIN REED Department: Room: Gender: F Athletic Coach: EMMANUEL : 1975 Requested By: IGOR WALLACE Order Number: [id number] Reading MD: Robert Freitas Measurements Intervals [place] Rate: 73 P: 26 FL: 152 QRS: -26 QRSD: 99 T: 33 QT: 382 QTc: 421 Interpretive Statements Sinus rhythm Low voltage, precordial leads Consider anterior infarct Compared to ECG 02/05/2021 20:47:21 Sinus rate has decreased Electronically Signed On 03-27-2022 12:09:55 EDT by Robert Freitas
== END 2022-03-26 09:11 | disposition home or self-care (01) ==
LOC: ECHO 09:10
PROVIDERS: ATTEND Specialist
DX: R60.9 Edema, unspecified (principal); I49.9 Cardiac arrhythmia, unspecified; R00.2 Palpitations
CPT/HCPCS: 93005; C8929; 93306